=== PATIENT | male | born 1970 | race Caucasian/White ===

== ENCOUNTER 2017-07-21 10:18 | Observation (INO) ==
[2017-07-21] MEDS ORDERED: Aspirin 81 MG TAB.CHEW PO ONE (10:25)
--- NOTE | 2017-07-21 10:31 | Emergency Department Note ---
Disposition Clinical Impression: Chest pain Qualifiers: Chest pain type: unspecified Qualified Code(s): R07.9 - Chest pain, unspecified Disposition: Admitted As Inpatient Condition: Fair Instructions: Chest Wall Pain in Children (ED) Referrals: Noble Banks DO [Primary Care Provider] - Time of Disposition: 11:36 Chest Pain HPI - General Chief Complaint: ED Chest Pain Stated Complaint: Chest Pain Time Seen by Provider: 07/21/17 10:25 Source: patient Mode of arrival: ambulatory Limitations: no limitations Vital Signs Reviewed: Yes Nursing Notes Reviewed: Yes - History of Present Illness HPI Narrative: 46-year-old who complains of chest pain 3 days. Patient does have a history of previous AK. She states he had chest pain lasted 15-20 minutes on Thursday night. The squad was called and they came out did an EKG didn't see anything acute offered transport him to the hospital but he declined. Patient saw family doctor yesterday and states that they have in the process of scheduling a stress test. Today the patient again had chest pain and presents now for evaluation. Patient states he had a small AK in 1994. He's had no recent cardiac workup. Risk factors include cigarette smoking and family history. Pt complaint: chest pain Onset (ago): Just [employer] ASSIST[employer] Duration: intermittent Onset: during rest Pain Location: substernal, left chest Severity: mild, moderate Severity scale (1-10): 3 Quality: tightness, aching Pain Radiation: none Improves with: nothing Worsens with: nothing Context: other (History of previous AK no recent workup) Associated symptoms: Reports: syncope (Near syncope on Thursday) Treatments prior to arrival chest pain: none - Related Data Allergies Allergy/AdvReac Type Severity Reaction Status Date / Time No Known Allergies Allergy Verified 07/21/17 10:20 All systems ED: reviewed and negative except as stated. Constitutional: Denies: fever, chills, weakness, weight change Eyes: Denies: eye pain, eye discharge, vision change ENT ED: Denies: ear pain, throat pain, dental pain, hearing loss, epistaxis, congestion, dysphagia Cardiovascular: Reports: chest pain. Denies: palpitations, dyspnea on exertion , edema, syncope Respiratory: Denies: cough, dyspnea, wheezes, hemoptysis, stridor Gastrointestinal: Denies: abdominal pain, nausea, vomiting, diarrhea, constipation, hematemesis, melena, hematochezia Genitourinary: Denies: urgency, dysuria, frequency, hematuria Musculoskeletal: Denies: back pain, neck pain, arthralgia, myalgia Integumentary: Denies: rash, abrasion, lesions Neurological: Denies: headache, weakness, numbness, paresthesias, confusion, abnormal gait, vertigo Psychiatric: Denies: anxiety, depression, suicidal thoughts, homicidal thoughts , auditory hallucinations, visual hallucinations Endocrine: Denies: fatigue Hematological/Lymphatic: Denies: easy bleeding, easy bruising Allergic/Immunologic: Denies: facial swelling, urticaria Chest Pain PMH - Past Medical History Medical history: Reports: myocardial infarction Psychiatric history: Reports: no psych history - Social History Smoking Status: Current every day smoker Alcohol use: Reports: none Physical Exam - General Limitations: no limitations General appearance: alert, in no apparent distress - Head Head exam: atraumatic, normocephalic, normal inspection - Eye Eye exam: Present: normal appearance, PERRL, EOMI - ENT ENT exam: normal exam, normal oropharynx, mucous membranes moist - Neck Neck exam: Present: normal inspection, full ROM, trachea midline - Chest Chest inspection: Present: normal inspection, symmetric chest wall rise - Respiratory Respiratory exam: Present: normal lung sounds bilaterally - Cardiovascular Cardiovascular exam: Present: regular rate, normal rhythm, normal heart sounds - Abdominal Exam Abdominal exam: Present: soft, Non-Tender. Absent: tenderness, distention, guarding, rebound, rigidity - Extremities Exam Extremities exam: Present: normal inspection, full ROM. Absent: tenderness, pedal edema - Expanded Lower Extremity Exam Neurovascular/Tendon exam: Absent: motor deficit, sensory deficit, tendon deficit Gait: observed and normal - Back Exam Back exam: Present: normal inspection, full ROM. Absent: tenderness - Neurological Exam Neurological exam: Present: alert, oriented X3 - Psychiatric Psychiatric exam: Present: normal affect, normal mood - Skin Skin exam: Present: warm, dry, intact, normal color Course - Reevaluation(s) Reevaluation #1: 46-year-old previous history of AK who comes in complaining of chest pain. Had an episode lasting 15-20 minutes on Thursday. Again had chest pain again today. Risk factors of cigarette smoking and family history. Workup negative to this point we'll admit for rule out. Time: 11:35 - Consultations Consultation #1: Discussed with Brii Crabtree, admit. Time: 11:33 Vital Signs Temperature 97.7 F 07/21/17 10:21 Pulse Rate 103 07/21/17 10:21 Respiratory Rate 15 07/21/17 10:21 Blood Pressure 163/98 07/21/17 10:21 O2 Sat by Pulse Oximetry 97 07/21/17 10:21 Temperature 97.7 F 07/21/17 10:21 Pulse Rate 88 07/21/17 11:31 Respiratory Rate 18 07/21/17 11:31 Blood Pressure 126/99 07/21/17 11:31 O2 Sat by Pulse Oximetry 98 07/21/17 11:31 Oxygen Delivery Oxygen Delivery Room Air Chest Pain - Lab Data Result diagrams: 07/21/17 10:50 07/21/17 10:50 Lab Results 07/21/17 07/21/17 07/21/17 Range/Units 10:50 10:50 10:50 WBC 13.3 H (4.3-11.1) K/mcL RBC 5.02 (4.19-5.50) M/mcL Hgb 15.0 (12.9-16.9) g/dL Hct 45.4 (37.5-50.1) % MCV 90.4 (83.0-100.0) fL MCH 29.9 (28.0-33.3) pg MCHC 33.0 (31.6-35.5) g/dL RDW 13.3 (11.5-14.5) % Plt Count 330 (140-400) K/mcL MPV 9.3 L (9.4-12.4) fL Immature Gran % 0.4 (0-4) % Seg Neutrophils % 73.5 % Lymphocytes % 18.5 % Monocytes % 5.9 % Eosinophils % 1.1 % Basophils % 0.6 % Neutrophils # 9.8 H (1.6-8.9) K/mcL Lymphocytes # 2.5 (0.6-4.6) K/mcL Monocytes # 0.8 (0.0-1.3) K/mcL Eosinophils # 0.1 (0.0-0.6) K/mcL Basophils # 0.1 (0.0-0.2) K/mcL PT 10.4 (9.4-12.1) Seconds INR 1.0 APTT 27.6 (26.0-36.0) Seconds D-Dimer 232 (0-500) ng/mLFEU Sodium 139 (136-145) mEq/L Potassium 4.3 (3.5-4.5) mEq/L Chloride 107 (98-109) mEq/L Carbon Dioxide 23 (19-29) mEq/L BUN 20 (8-26) mg/dL Creatinine 1.01 (0.72-1.25) mg/dL Est GFR ( Amer) > 60 (> 60) Est GFR (Non-Af Amer) > 60 (> 60) BUN/Creatinine Ratio 20 (6-26) Glucose 136 H (70-99) mg/dL Calculated Osmolality 293 (280-300) Calcium 10.1 (8.6-10.8) mg/dL Troponin I (0-0.03) ng/mL 07/21/17 Range/Units 10:50 WBC (4.3-11.1) K/mcL RBC (4.19-5.50) M/mcL Hgb (12.9-16.9) g/dL Hct (37.5-50.1) % MCV (83.0-100.0) fL MCH (28.0-33.3) pg MCHC (31.6-35.5) g/dL RDW (11.5-14.5) % Plt Count (140-400) K/mcL MPV (9.4-12.4) fL Immature Gran % (0-4) % Seg Neutrophils % % Lymphocytes % % Monocytes % % Eosinophils % % Basophils % % Neutrophils # (1.6-8.9) K/mcL Lymphocytes # (0.6-4.6) K/mcL Monocytes # (0.0-1.3) K/mcL Eosinophils # (0.0-0.6) K/mcL Basophils # (0.0-0.2) K/mcL PT (9.4-12.1) Seconds INR APTT (26.0-36.0) Seconds D-Dimer (0-500) ng/mLFEU Sodium (136-145) mEq/L Potassium (3.5-4.5) mEq/L Chloride (98-109) mEq/L Carbon Dioxide (19-29) mEq/L BUN (8-26) mg/dL Creatinine (0.72-1.25) mg/dL Est GFR ( Amer) (> 60) Est GFR (Non-Af Amer) (> 60) BUN/Creatinine Ratio (6-26) Glucose (70-99) mg/dL Calculated Osmolality (280-300) Calcium (8.6-10.8) mg/dL Troponin I 0.00 (0-0.03) ng/mL - EKG Data EKG attestation: Yes I reviewed and interpreted this EKG. EKG shows normal: sinus rhythm Rate: tachycardia Rhythm: NSR Interpretation: no acute changes Heart Score - Score History: Moderately Suspicious EKG: Non Specific repolarisation Disturbance Age: 45-65 Risk Factors: Equal/Greater than 3 risk factor or history of atherosclerotic disease Troponin: Less than normal limit HEART Score Total: 5
[2017-07-21 11:09] LABS: Basophils # 0.1 K/mcL (0.0-0.2); Basophils % 0.6 %; Eosinophils # 0.1 K/mcL (0.0-0.6); Eosinophils % 1.1 %; Hematocrit 45.4 % (37.5-50.1); Immature Granulocytes % 0.4 % (0-4); Lymphocytes # 2.5 K/mcL (0.6-4.6); Lymphocytes % 18.5 %; Mean Corpuscular Hemoglobin 29.9 pg (28.0-33.3); Mean Corpuscular Volume 90.4 fL (83.0-100.0); Mean Platelet Volume 9.3 fL (9.4-12.4); Monocytes # 0.8 K/mcL (0.0-1.3); Monocytes % 5.9 %; Neutrophils # 9.8 K/mcL (1.6-8.9); Platelet Count 330 K/mcL (140-400); Red Blood Count 5.02 M/mcL (4.19-5.50); Red Cell Distribution Width 13.3 % (11.5-14.5); Segmented Neutrophils % 73.5 %
[2017-07-21 11:13] LABS: Prothrombin Time 10.4 Seconds (9.4-12.1)
[2017-07-21 11:16] LABS: Activated Partial Thrombo Time 27.6 Seconds (26.0-36.0)
[2017-07-21 11:20] LABS: BUN/Creatinine Ratio 20 (6-26); Blood Urea Nitrogen 20 mg/dL (8-26); Calcium 10.1 mg/dL (8.6-10.8); Carbon Dioxide 23 mEq/L (19-29); Chloride 107 mEq/L (98-109); Glucose 136 mg/dL (70-99); Osmolality,Calculated 293 (280-300); Potassium 4.3 mEq/L (3.5-4.5); Sodium 139 mEq/L (136-145); eGFR For African Americans > 60 (> 60); eGFR For Non-African Americans > 60 (> 60)
[2017-07-21] MEDS ORDERED: Naloxone 0.4 MG/ML INJ IVP PRN (14:37)
--- NOTE | 2017-07-21 15:59 | Internal Med History&Physical ---
Date of Encounter: 07/21/17 Time of Encounter: 15:58 Assessment and Plan (1) ACS (acute coronary syndrome) Current visit: Yes Status: Acute Continued chest pain, no longer diaphoretic and denies dyspnea. Resting comfortably in bed. Troponins negative at this time, no EKG changes. Does not appear to be a PE as D-dimer is 232. Multiple risk factors for coronary event d/ t smoking, h/o CT, poor lifestyle choices and family history CAD. Continue to work up and consult cardio. Cardio consult~ Serial troponins echocardiogram Stress test in am Continuous tele, oxygen PRN for dyspnea lipid panel in am CBC, CMP in am (2) Chest pain Current visit: Yes Status: Acute see above Qualifiers: Chest pain type: unspecified Qualified Code(s): R07.9 - Chest pain, unspecified (3) Smoker Current visit: Yes Status: Acute Continues to smoke 1.5 packs per day. Will hold nicotine patch today and tomorrow until after stress test. (4) DVT prophylaxis Current visit: Yes Status: Acute lovenox 40mg SC daily Internal Medicine - H&P: HPI Chief complaint: CP X3 DAYS Admitted From: Home Plans for Post Hospital Care: Home History of present illness: Mr. Singh is a 46 year old male with a PMH of previous CT in 1994, who is a current 1.5 pack per day smoker present to the ED with a 3-day h/o midsternal chest pain that is described as intermittent, changing from sharp to dull with diaphoresis and radiation to the right neck. He denies chest pain worsening with exertion or being relieved by rest. Workup in ED reveals a negative troponin at 0.00, unremarkable CMP and CXR, Slightly elevated WBC at 13.3. Denies any lower extremity swelling, palpitations, or new cough. Admits to intermittent fevers greater than two weeks, night sweats greater than 3 weeks, and an unintentional weightloss of 14 pounds. Being admitted for further w/u and evaluation. Past Med Surg Social Fam HX - Past Medical History Medical history: myocardial infarction, other Psychiatric history: no psych history - Past Surgical History Surgical History: orthopedic, other - Social History Smoking Status: Current every day smoker Packs per day: 1.5 Smokeless Tobacco Status: No Alcohol use: none Drug use: none - Family History Father Living Status: Age at : 71 Cause of : [place] Hx Family Cardiac Disorders: Yes Internal Medicine - H&P: Meds Acetaminophen [Tylenol] 500 mg PO Q6HR PRN 07/21/17 [History] 3 Allergy/AdvReac Type Severity Reaction Status Date / Time No Known Allergies Allergy Verified 07/21/17 10:20 All Systems PM: A 10-system review of systems was performed and is negative for pertinent findings except as documented above in the HPI. - Constitutional Constitutional: excessive sweating, fever(s), night sweats, weight loss - EENT Nose, mouth and throat: no dysphagia, no nasal discharge, no neck pain, no sore throat - Cardiovascular Cardiovascular ROS IM: chest pain, no diaphoresis, no dyspnea, no edema, no lightheadedness, no palpitations, no syncope - Respiratory Respiratory: no cough, no dyspnea, no dyspnea on exertion, no wheezing, no pain on inspiration, no chest congestion, no excessive phlegm production, no pain with cough - Gastrointestinal Gastrointestinal: no abdominal pain, no diarrhea, no hematemesis, no hematochezia, no melena, no nausea, no vomiting - Genitourinary Genitourinary ROS male: no difficulty urinating, no dysuria, no flank pain, no urinary frequency, no urinary hesitancy, no urinary urgency - Musculoskeletal Musculoskeletal ROS IM: no numbness, no tingling - Integumentary Integumentary IM: no rash, no unusual bruising - Neurological Neurological ROS: no confusion, no convulsions, no focal weakness, no numbness, no tingling, no tremor(s) - Constitutional Vitals: Temp Pulse Resp BP Pulse Ox 98.0 F 70 16 127/82 97 07/21/17 15:47 07/21/17 15:47 07/21/17 15:47 07/21/17 15:47 07/21/17 15:47 General appearance: Present: cooperative, A&O X 3, no acute distress, answers questions appropriately - Head Head exam: Present: atraumatic, normocephalic - Eye Eye exam: Present: EOMI, PERRL, conjuntiva pink, sclera anicteric Pupils: Present: PERRL - Neck Neck exam general surgery: Present: supple, trachea midline. Absent: lymphadenopathy - Respiratory Respiratory exam: Present: CTAB. Absent: accessory muscle use, rales, rhonchi, wheezes - Cardiovascular Cardiovascular exam: Present: RRR, +S1, +S2. Absent: diastolic murmur, gallop, rubs, systolic murmur - GI/Abdominal GI/Abdominal exam: Present: normal bowel sounds, soft, no peritoneal signs. Absent: distended, tenderness - Extremities Exam Extremities exam: Present: warm, radial pulses palpable and symmetrical. Absent : calf tenderness, cyanotic, pedal edema - Neurological Exam Neurological exam: Present: CN II-XII intact, oriented X3, no focal deficits. Absent: pronater drift, facial droop, speech deficit - Skin Skin exam: Present: dry, intact Internal Med - H&P Results - Labs CBC & Chem 7: 07/21/17 10:50 07/21/17 10:50 - EKG Data -: EKG Interpreted by Myself EKG shows normal: sinus rhythm Rate: tachycardia - EKG Data Prior EKG available for review: yes When compared to previous EKG: there is no significant change - Diagnostic Studies Chest x-ray Status: image reviewed by me Additional comments: no acute pulmonary process
--- NOTE | 2017-07-21 16:23 | Event Note ---
Date of Encounter: 07/21/17 Time of Encounter: 16:22 Patient seen and examined with nurse practitioner. Not anginal chest pain. Initial troponin normal and electrocardiogram shows no ST segment shifts. Check Serial cardiac markers. Stress test if troponins are normal
[2017-07-22 04:42] LABS: Basophils # 0.1 K/mcL (0.0-0.2); Basophils % 0.7 %; Eosinophils # 0.3 K/mcL (0.0-0.6); Eosinophils % 2.4 %; Hematocrit 43.9 % (37.5-50.1); Hemoglobin 14.8 g/dL (12.9-16.9); Immature Granulocytes % 0.3 % (0-4); Lymphocytes # 4.1 K/mcL (0.6-4.6); Lymphocytes % 33.1 %; Mean Corpuscular HGB Conc 33.7 g/dL (31.6-35.5); Mean Corpuscular Hemoglobin 30.5 pg (28.0-33.3); Mean Corpuscular Volume 90.5 fL (83.0-100.0); Mean Platelet Volume 9.6 fL (9.4-12.4); Monocytes % 7.7 %; Neutrophils # 6.9 K/mcL (1.6-8.9); Platelet Count 287 K/mcL (140-400); Red Blood Count 4.85 M/mcL (4.19-5.50); Red Cell Distribution Width 13.2 % (11.5-14.5); Segmented Neutrophils % 55.8 %
[2017-07-22 05:07] LABS: BUN/Creatinine Ratio 19 (6-26); Blood Urea Nitrogen 18 mg/dL (8-26); Calcium 9.4 mg/dL (8.6-10.8); Carbon Dioxide 25 mEq/L (19-29); Chloride 105 mEq/L (98-109); Glucose 90 mg/dL (70-99); Osmolality,Calculated 289 (280-300); Sodium 139 mEq/L (136-145); eGFR For African Americans > 60 (> 60); eGFR For Non-African Americans > 60 (> 60)
[2017-07-22] MEDS ORDERED: *HR* Enoxaparin 40 MG/0.4 ML SYRINGE SQ SCH (06:00)
[2017-07-22] MEDS ORDERED: Regadenoson 0.4 MG/5 ML SYRINGE IVP ONE (06:03)
[2017-07-22] MEDS ORDERED: Aspirin 81 MG TAB.CHEW PO SCH (09:00)
--- NOTE | 2017-07-22 11:00 | Nuclear Medicine Stress Report ---
Regadenoson Nuclear Stress Name: Noble Singh Date of Study: 07/22/2017 Date: 1970 Ht: 70.0 in Medical Record#: [id number] Age: 46 Wt: 205.0 lb Gender: Male Order #: [id number] Location: [facility] Room: [facility] Supervising Provider: Harsha Bernardo CNP Reading Physician: Nicolas Aguiar DO, FACC, [facility] Ordering Physician: June Landis CNP Stress Technologist: Gunnar Orellana, SUPERVISOR DENTURE DEPARTMENT, CPFT Curbstone Setter: Roshan Bond Indications: Chest Pain Impression: Pharmacologic stress ECG is negative for ischemia at level of heart rate achieved. Gated EF = 66%. Small sized, mild intensity, reversible inferior and anterior perfusion defects possibly due to ischemia. Dr. Carter notified via [employer]. History: History of Smoking Stress Test Summary: Stress Test Type: Pharmacologic Regadenoson 0.4mg/5ml given IV Baseline Information: Initial Heart Rate: 79 Blood Pressure: 112/74 Stress Information: Stress Time: 4 min 00 sec Test Terminated Due to (primary): As per protocol Maximum Blood Pressure: 112/74 Maximum Heart Rate: 114 Percent Maximum Heart Rate Achieved: 66 Double Product: [id number] METS Reached: 1 Symptoms: Shortness of breath, Nausea Nuclear Summary: SPECT myocardial perfusion imaging using Tc99m Sestamibi given intravenously was performed at rest and following cardiac stress testing. The resting images were obtained following initial dose of 10.7 mCi. Following stress an additional dose of 29.6 mCi was given at peak exercise or 30 seconds post regadenoson infusion. Medication Given: Time Medication Dose Units Route Findings: Stress Note * Resting ECG demonstrated normal sinus rhythm. * No baseline arrhythmias were noted. * Pharmacologic stress ECG is negative for ischemia at level of heart rate achieved. * No arrhythmias were noted during stress. * Patient had no chest pain during stress. Hemodynamic responses * Normal hemodynamic responses to pharmacologic stress. Study Quality * Study quality is average. Gated EF % * Gated EF = 66%. Left Ventricle * The left ventricle is not dilated. * LVEDV = 115 mL. NORMALS * Normal wall motion. * Normal Segmental Perfusion in rest. Anterior Perfusion Stress * The basal anterior segment shows a mild reduction in perfusion. Inferior Perfusion Stress * The inferior segments show a mild reduction in perfusion. TID * No evidence of transient ischemic dilatation. TID ratio * TID ratio = 1.16. Updated by Nicolas Aguiar DO, ZEN, JUAN DIEGO, CORNELL on 07/22/2017 10:54:18 AM electronically signed on 07/22/2017 10:55:14 AM with status of Final
--- NOTE | 2017-07-22 12:03 | Electrocardiograph Report ---
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
[2017-07-22] MEDS ORDERED: Ketorolac 30 MG/ML VIAL IVP ONE (14:28)
--- NOTE | 2017-07-22 14:48 | Cardiology Consult Note ---
Date of Encounter: 07/22/17 Time of Encounter: 14:00 Assessment and Plan (1) Chest pain Current Visit: Yes Status: Acute Per cardiology: -Admitted with chest pain. -Reports occured at rest. -Denies exertional chest pain. Of note, exercises daily without chest pain. -Current chest pain 10/28. Worsens with deep inspiration. -Chest pain reproducable with palpation. -Troponins negative x3. -ECG with no acute ischemic changes -Echo with preserved EF, no wall motion abnormalities. -ABnormal stress test noted. -Will follow in outpatient setting. Qualifiers: Chest pain type: unspecified Qualified Code(s): R07.9 - Chest pain, unspecified (2) Abnormal stress test Current Visit: Yes Status: Acute Per cardiology: -Pharm nuclear stress test with gated EF 66%, small sized mild intensity reversible inferior and anterior perfusion defects possibly due ot ischemia. -Discussed abnormal findings with patient and mother. -recommend C. -AT this time, patient would like to follow up in cardiology clinic and then proceed with C based on symptoms. -Will start asa 81mg, beta adela, and statin. -Cardiology will sign off and will follow in outpatient setting. FOllow up set. -Patient educated to return to ER for chest pain. Pateint states understanding. (3) Tobacco abuse Current Visit: Yes Status: Chronic Per cardiology: -Admits to smoking 1.5 ppd for 25 years. -I spent 5 minutes reviewing smoking cessation education with patient. (4) Hyperlipemia Current Visit: Yes Status: Acute Per cardiology: -Patient denies history of hyperlipidemia. -Per review of records 10/2016 triglycerides 154, cholesterol 170, LDL 104, HDL 35. -Will start statin. Qualifiers: Hyperlipidemia type: mixed hyperlipidemia Qualified Code(s): E78.2 - Mixed hyperlipidemia Discussion w patient/family: The assessment and plan as outlined above was discussed with the patient and/or family members who expressed understanding and agreement. All questions were answered. Thank you for involving us in the care of your patient. Please call with any questions. Discussed and reviewed with . History of Present Illness Consult date: 07/22/17 Requesting physician: June Landis Consult reason: abnormal stress test Chief complaint: chest pain History of present illness: Mr. Singh is a 46 year old male with a relevant past medical history of smoking 1.5 pack per day for 25 years. Patient has family history of CAD with father having first [place] between ages 30-40, unsure exactly which age. Patient reports on Thursday he was laying in bed when he had sudden onset of mid sternal chest pain that patient rated 10/10 at that time. Patient states it felt "like someone sitting on my chest." Patient denies aggravating or alleviating factors. Patient states pain spontaneously resolved eafter 10 minutes. Patient states on Thursday he went to his PCP office who ordered stress test. Patient was told by PCP if he had recurrent chest pain to go to ER. Patient states he had recurrent chest pain, not as severe, so he presented to ER. Currently patient states pain is a 1/10. Patient reports pain worsens with deep inspiration. Of note, patient exercises daily and denies chest pain with work outs. Patient does admit to worsening shortness of breath over the last 6 weeks. Patient denies increased fatigue. Past Med Surg Social Fam HX - Past Medical History Attestation: Yes The following information was validated with the patient. Source: patient, old records reviewed, obtained from family Medical history: myocardial infarction, other Psychiatric history: no psych history - Past Surgical History Surgical History: orthopedic, other - Social History Smoking Status: Current every day smoker Packs per day: 1.5 Smokeless Tobacco Status: No Alcohol use: none Drug use: none - Family History Father Living Status: Age at : 71 Cause of : [place] Hx Family Cardiac Disorders: Yes Medications and Allergies Acetaminophen [Tylenol] 500 mg PO Q6HR PRN 07/21/17 [History] 3 Allergy/AdvReac Type Severity Reaction Status Date / Time No Known Allergies Allergy Verified 07/21/17 10:20 All Systems Review: A 10-system review of systems was performed and is negative for pertinent findings except as documented above in the HPI. - Cardiovascular Cardiovascular: as per HPI, chest pain at rest, dyspnea on exertion Physical Examination Vital Signs, Last 4 Hours Temp Pulse Resp BP Pulse Ox 07/22/17 11:33 98.3 F 76 15 121/78 95 General: Conversant, No Apparent Distress HEENT: Atraumatic, Normocephaly, Mucus Membranes Moist Neck: No JVD, Normal carotid pulses Cardiac: Reg Rate and Rhythm, Normal S1 and S2, No Murmur Lungs: Normal Breath Sounds, No Wheeze, Rales, Rhonchi Neuro: Alert and responsive, No focal deficits noted Abdomen: Soft, Non-Tender Skin: No rashes noted on visualized skin Musculoskeletal: Other (Chest wall tenderness noted with palpation. ) Extremities: No Clubbing, No Cyanosis, No Edema, Normal Pulses Results 07/22/17 03:45 07/22/17 03:45 Lab Results Impressions Echocardiogram 07/21/17 14:41 Impressions: LVEF 60%. Normal LV chamber size, wall thickness and function. Probable normal left ventricular diastolic function. Normal right ventricular structure and function. Unable to estimate RVSP due to lack of TR jet. No significant valvular dysfunction. Left Ventricular Wall Motion: Rest Echo Findings All wall segments showed normal motion. Findings: Study Quality * Technically adequate exam. ECG Findings * Normal sinus rhythm. Left Ventricle * LVEF 60%. * Normal LV chamber size, wall thickness and function. * Probable normal left ventricular diastolic function. Right Ventricle * Normal right ventricular structure and function. Left Atrium * Normal left atrial size. Right Atrium * Normal right atrial size. Interatrial Septum * No evidence of PFO by color Doppler. Aortic Valve * Trileaflet aortic valve with normal function. * No aortic regurgitation. * No aortic stenosis. Mitral Valve * Normal mitral valve structure and function. * No mitral regurgitation. * No mitral stenosis. Tricuspid Valve * Normal tricuspid valve structure and function. * No tricuspid regurgitation. * Unable to estimate RVSP due to lack of TR jet. Pulmonic Valve * Pulmonic valve not well visualized. * No pulmonic regurgitation. Aorta * Normally sized aortic root. Pericardium * The pericardium appears normal. IVC * Normal IVC dimensions and inspiratory collapse. Pulmonary Artery * Normal visualized portions of the main pulmonary artery. Active Medications Acetaminophen (Tylenol) 500 mg PO Q6HR PRN PRN Reason: Pain Stop: 01/20/18 15:01 Aspirin (Aspirin) 162 mg PO DAILY [facility] Stop: 01/21/18 09:01 Last Admin: 07/22/17 08:56 Dose: 81 mg Enoxaparin Sodium (Lovenox) 40 mg SQ 0600 MATTIE PRN Reason: Protocol Stop: 01/21/18 06:01 Last Admin: 07/22/17 02:18 Dose: Not Given Naloxone HCl (Narcan) 0.4 mg IVP Q2MIN PRN PRN Reason: Opioid Reversal Stop: 01/20/18 14:38 Laboratory Tests 07/21/17 07/21/17 07/21/17 10:50 16:08 22:51 WBC Creatinine Troponin I 0.00 0.00 0.00 07/22/17 07/22/17 03:45 03:45 WBC 12.4 H Creatinine 0.97 Troponin I - Imaging and Cardiology Chest Xray: report reviewed Stress Test: report reviewed Echo: report reviewed - EKG Interpretation EKG results cardiology: personally reviewed (ECG with sinus tachycardia, HR 105. ), other (Telemetry reviewed with average HR 75, sinus rhythm. PVCs noted.) Consult Discharge Plan - Plan
[2017-07-22] MEDS ORDERED: Metoprolol XL (24 HR) Succ 25 MG TAB.ER.24H PO SCH (15:00)
[2017-07-22 15:05] VITALS: BP 146/76
--- NOTE | 2017-07-22 15:08 | Discharge Summary ---
Date of Encounter: 07/22/17 Time of Encounter: 15:03 - Discharge Diagnosis (1) Chest pain Priority: Primary Status: Acute Comments: Noble Singh is a 46-year-old male with no significant past medical history who presented to [facility] on 07/21/2017 with complaints of chest pain. He was placed in observation status for ACS rule out. He underwent a stress test that showed a mild defect. He was evaluated by cardiology and discharged home in stable condition with outpatient cardiology follow-up 1. Chest pain: presented with chest pain that occurred at rest. Serial troponins negatuve. EKG without acute ST changes. Pharm nuclear stress test with gated EF 66%, small sized mild intensity reversible inferior and anterior perfusion defects possibly due to ischemia. He was evaluated by cardiology and patient opted to follow up outpatient cardiology clinic (will decide on left heart catheter based on symptoms). Start ASA, BB and statin. Will need to follow up with cardiology. 2. Tobacco use: Current smoker. Cessation advised Qualifiers: Chest pain type: unspecified Qualified Code(s): R07.9 - Chest pain, unspecified (2) Tobacco abuse Priority: Primary Status: Acute - Discharge Medications Prescriptions: Aspirin Enteric Coated [Aspirin EC] 81 mg PO DAILY #30 tablet. Atorvastatin [Lipitor] 40 mg PO HS #30 tablet Metoprolol XL (24 HR) Succ [Toprol Xl] 25 mg PO DAILY #30 tab.er.24h Home Medications: Acetaminophen [Tylenol] 500 mg PO Q6HR PRN 07/21/17 [History] Aspirin Enteric Coated [Aspirin EC] 81 mg PO DAILY #30 tablet. 07/22/17 [Rx] Atorvastatin [Lipitor] 40 mg PO HS #30 tablet 07/22/17 [Rx] Metoprolol XL (24 HR) Succ [Toprol Xl] 25 mg PO DAILY #30 tab.er.24h 07/22/17 [ Rx] Allergies/Adverse Reactions: 3 Allergy/AdvReac Type Severity Reaction Status Date / Time No Known Allergies Allergy Verified 07/21/17 10:20 Procedures/tests Complete & Pending: Procedures Performed prior 72 hours Category Date Time Status NM bucky perf SPECT multi [NM] Routine Exams 07/21/17 14:42 Taken EV echocardiogram Routine Y 07/21/17 14:41 Completed SP pharm nuclear stress Routine Y 07/22/17 07:00 Completed Date of admission: 07/21/17 11:45 Primary care physician: Janet Arboleda Consults: 07/22/17 14:01 Consult to Cardiology [CONS] Routine Comment: Consulting Provider: Cardiology Darlene Reason for Consult: Abnormal stress test Call Completed: Yes Discharging clinician: June Landis Anticipated date of discharge: 07/22/17 - Patient Status Disposition: Home, Self-Care Condition: Good Functional capacity at discharge: independent ambulation Overall status at discharge: patient is back to baseline - Discharge Instructions Follow Up With: Noble Banks DO [Primary Care Provider] - Forms: ED Satisfaction Letter - Diet and Activity Activity: resume usual activities as tolerated Diet: low fat, low cholesterol Interval History: Seen and examined at bedside, patient is new to me. Information obtained from chart review and patient report. Patient says he feels better, back to baseline. Denies chest pain, no SOB. Says he would like to go home Hospital course: See assessment and plan for hospital course - Time Spent with Patient Total time spent providing and/or coordinating discharge services: - Constitutional Vitals: Temp Pulse Resp BP Pulse Ox 98.3 F 76 15 121/78 95 07/22/17 11:33 07/22/17 11:33 07/22/17 11:33 07/22/17 11:33 07/22/17 11:33 General appearance: Present: cooperative, A&O X 3, no acute distress, answers questions appropriately - Head Head exam: Present: atraumatic, normocephalic - Eye Eye exam: Present: PERRL, conjuntiva pink, sclera anicteric Pupils: Present: PERRL - Neck Neck exam general surgery: Present: supple, trachea midline. Absent: lymphadenopathy - Respiratory Respiratory exam: Present: CTAB. Absent: accessory muscle use, rales, rhonchi, wheezes - Cardiovascular Cardiovascular exam: Present: RRR, +S1, +S2. Absent: diastolic murmur, gallop, rubs, systolic murmur - GI/Abdominal GI/Abdominal exam: Present: normal bowel sounds, soft, no peritoneal signs. Absent: distended, tenderness - Extremities Exam Extremities exam: Present: warm, radial pulses palpable and symmetrical. Absent : calf tenderness, cyanotic, pedal edema - Neurological Exam Neurological exam: Present: CN II-XII intact, oriented X3, no focal deficits. Absent: pronater drift, facial droop, speech deficit - Skin Skin exam: Present: dry, intact
[2017-07-23] MEDS ORDERED: Aspirin Enteric Coated 81 MG Tablet PO SCH (09:00)
== END 2017-07-22 15:45 | disposition home or self-care (01) ==
LOC: 3BNU 10:18 → EMEROO 10:18 → 3BNU 12:40
PROVIDERS: ADMIT Nurse Practitioner; ATTEND Registered Nurse

== ENCOUNTER 2019-06-14 09:16 | Inpatient (IN) ==
[2019-06-14] MEDS ORDERED: Isovue-370 500 ML BOTTLE IVP ONE (09:20)
[2019-06-14 09:57] LABS: Basophils % 0.3 %; Mean Corpuscular HGB Conc 34.7 g/dL (31.6-35.5); Red Cell Distribution Width 12.8 % (11.5-14.5)
[2019-06-14 09:59] LABS: Basophils # 0.1 K/mcL (0.0-0.2); Eosinophils # 0.1 K/mcL (0.0-0.6); Eosinophils % 0.5 %; Hematocrit 45.2 % (37.5-50.1); Hemoglobin 15.7 g/dL (12.9-16.9); Immature Granulocytes % 0.7 % (0-4); Lymphocytes # 2.4 K/mcL (0.6-4.6); Lymphocytes % 9.4 %; Mean Corpuscular Hemoglobin 31.8 pg (28.0-33.3); Mean Corpuscular Volume 91.7 fL (83.0-100.0); Mean Platelet Volume 9.6 fL (9.4-12.4); Monocytes # 1.4 K/mcL (0.0-1.3); Monocytes % 5.6 %; Neutrophils # 21.5 K/mcL (1.6-8.9); Platelet Count 298 K/mcL (140-400); Red Blood Count 4.93 M/mcL (4.19-5.50); Segmented Neutrophils % 83.5 %; White Blood Count 25.7 K/mcL (4.3-11.1)
[2019-06-14 10:21] LABS: Alanine Aminotransferase 14 Units/L (7-52); Albumin 4.3 g/dL (3.5-5.7); Albumin/Globulin Ratio 1.3 (1.1-2.2); Alkaline Phosphatase 93 Units/L (34-104); Aspartate Amino Transferase 12 Units/L (13-39); BUN/Creatinine Ratio 12 (6-26); Bilirubin,Direct 0.1 mg/dL (0.0-0.2); Bilirubin,Indirect 0.3 mg/dL (0.0-1.2); Bilirubin,Total 0.4 mg/dL (0.3-1.0); Blood Urea Nitrogen 12 mg/dL (6-20); Carbon Dioxide 24 mEq/L (23-29); Chloride 105 mEq/L (98-107); Globulin 3.2 g/dL (2.4-3.5); Glucose 134 mg/dL (70-105); Lipase 14 Units/L (11-82); Osmolality,Calculated 290 (280-300); Potassium 3.6 mEq/L (3.5-5.1); Sodium 139 mEq/L (136-145); Total Protein 7.5 g/dL (6.4-8.9); eGFR For African Americans > 60 (> 60); eGFR For Non-African Americans > 60 (> 60)
[2019-06-14] MEDS ORDERED: cefOXitin 2,000 MG in Water for inj. (sterile) 20 ML IVP ONE (10:26)
[2019-06-14 10:32] LABS: Platelet Estimate Normal (Normal)
[2019-06-14 10:50] LABS: Bilirubin,Urine Negative (Negative); Blood,Urine Negative (Negative); Clarity,Urine Clear (Clear); Color,Urine Yellow (Yellow); Glucose,Urine (UA) Normal (Normal); Ketones,Urine Negative (Negative); Leukocyte Esterase,Urine Negative (Negative); Nitrite,Urine Positive (Negative); Protein,Urine Negative (Neg-Trace); Specific Gravity,Urine 1.024 (1.010-1.025); Urobilinogen,Urine Normal (Normal)
[2019-06-14 10:52] LABS: Bacteria,Urine None Seen per hpf (None-Few); Hyaline Casts,Urine None Seen per lpf (None-Few); Squamous Epithelial Cell,Urine Many per lpf (None-Few); WBC,Urine 0-3 per hpf (0-3)
[2019-06-14] MEDS ORDERED: MetroNIDAZOLE 500 MG/100 ML 500 MG/100 ML BAG IVPB ONE (11:31)
[2019-06-14] MEDS ORDERED: Ringers Solution, Lactated 1,000 ML IVC ONE (13:28)
[2019-06-14] MEDS ORDERED: Ringers Solution, Lactated 1,000 ML ONE (13:31)
[2019-06-14] MEDS ORDERED: Naloxone 0.4 MG/ML INJ IVP PRN (14:26)
[2019-06-14] MEDS: Ringers Solution, Lactated 1,000 ML IVC SCH ×2 (14:30→23:29)
[2019-06-14 15:14] LABS: INR 1.1; Prothrombin Time 12.3 Seconds (9.4-12.1)
[2019-06-14 15:19] LABS: Activated Partial Thrombo Time 30.5 Seconds (26.0-36.0)
[2019-06-14] MEDS ORDERED: Nicotine 14 MG PATCH.TD24 TD PRN (15:21)
[2019-06-14] MEDS: Piperacillin/Tazobactam 3.375 GM in 0.9 % Sodium Chloride Mini Bag 100 ML IVPB SCH ×2 (15:56→23:29)
[2019-06-14] MEDS: Acetaminophen 325 MG TABLET PO PRN ×2 (16:06→23:29)
[2019-06-14] MEDS: Famotidine 20 MG TABLET PO SCH ×2 (16:39→21:48)
[2019-06-14] MEDS: *HR* Heparin 5,000 UNIT/ML VIAL SQ SCH (16:39)
[2019-06-14] MEDS ORDERED: *HR* OxyCODONE/APAP 5/325 TABLET PO ONE (17:51)
[2019-06-14] MEDS ORDERED: MetroNIDAZOLE 500 MG/100 ML 500 MG/100 ML BAG IVPB SCH (22:00)
[2019-06-14] MEDS: Ondansetron ODT 4 MG TAB.RAPDIS SL PRN (23:36)
[2019-06-15] MEDS: Famotidine 20 MG TABLET PO SCH ×4 (03:08→23:30)
[2019-06-15] MEDS: *HR* Heparin 5,000 UNIT/ML VIAL SQ SCH ×2 (06:13→18:06)
[2019-06-15 07:18] LABS: Basophils # 0.1 K/mcL (0.0-0.2); Basophils % 0.4 %; Eosinophils # 0.1 K/mcL (0.0-0.6); Eosinophils % 0.5 %; Hematocrit 42.9 % (37.5-50.1); Hemoglobin 14.6 g/dL (12.9-16.9); Immature Granulocytes % 0.5 % (0-4); Lymphocytes # 2.3 K/mcL (0.6-4.6); Lymphocytes % 11.2 %; Mean Corpuscular Hemoglobin 30.8 pg (28.0-33.3); Mean Corpuscular Volume 90.5 fL (83.0-100.0); Mean Platelet Volume 9.7 fL (9.4-12.4); Monocytes # 1.5 K/mcL (0.0-1.3); Monocytes % 7.1 %; Neutrophils # 16.5 K/mcL (1.6-8.9); Platelet Count 267 K/mcL (140-400); Red Blood Count 4.74 M/mcL (4.19-5.50); Red Cell Distribution Width 12.6 % (11.5-14.5); Segmented Neutrophils % 80.3 %; White Blood Count 20.6 K/mcL (4.3-11.1)
[2019-06-15 07:40] LABS: BUN/Creatinine Ratio 8 (6-26); Blood Urea Nitrogen 8 mg/dL (6-20); Carbon Dioxide 25 mEq/L (23-29); Chloride 100 mEq/L (98-107); Glucose 90 mg/dL (70-105); Osmolality,Calculated 284 (280-300); Potassium 3.3 mEq/L (3.5-5.1); Sodium 138 mEq/L (136-145); eGFR For African Americans > 60 (> 60); eGFR For Non-African Americans > 60 (> 60)
[2019-06-15] MEDS: Piperacillin/Tazobactam 3.375 GM in 0.9 % Sodium Chloride Mini Bag 100 ML IVPB SCH ×3 (08:02→23:30)
[2019-06-15] MEDS: Ondansetron ODT 4 MG TAB.RAPDIS SL PRN (09:17)
[2019-06-15] MEDS: *HR* OxyCODONE/APAP 5/325 TABLET PO PRN ×2 (09:17→18:06)
[2019-06-16] MEDS: *HR* OxyCODONE/APAP 5/325 TABLET PO PRN (00:13)
[2019-06-16] MEDS: *HR* Heparin 5,000 UNIT/ML VIAL SQ SCH (04:39)
[2019-06-16] MEDS: Famotidine 20 MG TABLET PO SCH ×2 (04:39→10:35)
[2019-06-16 05:16] LABS: Basophils # 0.1 K/mcL (0.0-0.2); Basophils % 0.4 %; Eosinophils # 0.2 K/mcL (0.0-0.6); Eosinophils % 1.1 %; Hematocrit 41.3 % (37.5-50.1); Hemoglobin 13.8 g/dL (12.9-16.9); Immature Granulocytes % 0.6 % (0-4); Lymphocytes # 2.7 K/mcL (0.6-4.6); Lymphocytes % 15.7 %; Mean Corpuscular HGB Conc 33.4 g/dL (31.6-35.5); Mean Corpuscular Hemoglobin 29.7 pg (28.0-33.3); Mean Platelet Volume 9.1 fL (9.4-12.4); Monocytes # 1.4 K/mcL (0.0-1.3); Monocytes % 7.9 %; Neutrophils # 12.8 K/mcL (1.6-8.9); Platelet Count 234 K/mcL (140-400); Red Blood Count 4.64 M/mcL (4.19-5.50); Red Cell Distribution Width 12.7 % (11.5-14.5); Segmented Neutrophils % 74.3 %; White Blood Count 17.2 K/mcL (4.3-11.1)
[2019-06-16 05:34] LABS: BUN/Creatinine Ratio 7 (6-26); Blood Urea Nitrogen 8 mg/dL (6-20); Calcium 8.8 mg/dL (8.6-10.3); Carbon Dioxide 30 mEq/L (23-29); Chloride 102 mEq/L (98-107); Glucose 100 mg/dL (70-105); Osmolality,Calculated 288 (280-300); Potassium 3.6 mEq/L (3.5-5.1); Sodium 140 mEq/L (136-145); eGFR For African Americans > 60 (> 60); eGFR For Non-African Americans > 60 (> 60)
[2019-06-16] MEDS: Piperacillin/Tazobactam 3.375 GM in 0.9 % Sodium Chloride Mini Bag 100 ML IVPB SCH (10:35)
[2019-06-16] MEDS ORDERED: Nystatin SUSP 5 ML UD.LIQ BC SCH (13:00)
[2019-06-16 16:16] VITALS: BP 115/77
== END 2019-06-16 16:40 | disposition home or self-care (01) | DRG 391 ==
LOC: EMEROOARM 09:16 → 3ANU 09:16 → SUATTDRO 13:34 → 3ANU 14:16 → SUATTDRO 15:09 → 3ANU 18:56
PROVIDERS: ADMIT Internal Medicine Nephrology; ATTEND Internal Medicine

== ENCOUNTER 2019-07-04 09:59 | Inpatient (IN) ==
[2019-07-04] MEDS ORDERED: *HR* HYDROmorphone (PF) 1 MG/ML SYRINGE IVP ONE ×2 (10:27→12:23)
[2019-07-04] MEDS ORDERED: Ondansetron 4 MG/2 ML VIAL IVP ONE ×2 (10:27→12:23)
[2019-07-04] MEDS ORDERED: 0.9 % Sodium Chloride 1,000 ML IVC ONE (10:27)
[2019-07-04 10:43] LABS: Monocytes % 3.5 %
[2019-07-04 10:44] LABS: Basophils # 0.1 K/mcL (0.0-0.2); Basophils % 0.4 %; Hemoglobin 18.1 g/dL (12.9-16.9); Immature Granulocytes % 0.6 % (0-4); Lymphocytes # 1.5 K/mcL (0.6-4.6); Lymphocytes % 5.3 %; Mean Corpuscular HGB Conc 35.5 g/dL (31.6-35.5); Mean Corpuscular Hemoglobin 32.5 pg (28.0-33.3); Mean Corpuscular Volume 91.6 fL (83.0-100.0); Mean Platelet Volume 9.4 fL (9.4-12.4); Neutrophils # 24.9 K/mcL (1.6-8.9); Platelet Count 495 K/mcL (140-400); Red Blood Count 5.57 M/mcL (4.19-5.50); Red Cell Distribution Width 13.2 % (11.5-14.5); Segmented Neutrophils % 90.2 %; White Blood Count 27.6 K/mcL (4.3-11.1)
[2019-07-04] MEDS ORDERED: Isovue-370 500 ML BOTTLE IVP ONE (10:56)
[2019-07-04 11:06] LABS: Alanine Aminotransferase 15 Units/L (7-52); Albumin 4.7 g/dL (3.5-5.7); Albumin/Globulin Ratio 1.3 (1.1-2.2); Alkaline Phosphatase 90 Units/L (34-104); Aspartate Amino Transferase 15 Units/L (13-39); BUN/Creatinine Ratio 16 (6-26); Bilirubin,Direct 0.1 mg/dL (0.0-0.2); Bilirubin,Indirect 0.4 mg/dL (0.0-1.2); Bilirubin,Total 0.5 mg/dL (0.3-1.0); Blood Urea Nitrogen 15 mg/dL (6-20); Calcium 9.8 mg/dL (8.6-10.3); Carbon Dioxide 27 mEq/L (23-29); Chloride 103 mEq/L (98-107); Globulin 3.7 g/dL (2.4-3.5); Glucose 173 mg/dL (70-105); Lipase 21 Units/L (11-82); Osmolality,Calculated 295 (280-300); Sodium 140 mEq/L (136-145); Total Protein 8.4 g/dL (6.4-8.9); Troponin I < 0.03 ng/mL (< 0.04); eGFR For African Americans > 60 (> 60); eGFR For Non-African Americans > 60 (> 60)
[2019-07-04] MEDS ORDERED: Piperacillin/Tazobactam 3.375 GM in 0.9 % Sodium Chloride Mini Bag 100 ML IVPB STA (11:09)
--- NOTE | 2019-07-04 11:11 | Emergency Department Note ---
Disposition Clinical Impression: Small bowel obstruction, Diverticulitis, Perforation of sigmoid colon due to diverticulitis Disposition: Admitted As Inpatient Condition: Fair Referrals: Noble Banks DO [Primary Care Provider] - Forms: ED Satisfaction Letter Time of Disposition: 12:30 General Adult HPI - General Chief complaint: ED Nausea/Vomiting/Diarrhea Stated complaint: Vomiting,Fever,Diverticulitis Time Seen by Provider: 07/04/19 10:05 Source: patient Mode of arrival: private vehicle Limitations: no limitations Nursing Notes Reviewed: Yes Vital Signs Reviewed: Yes - History of Present Illness HPI Narrative: Patient is a 48-year-old male with a past medical history of primary immunodeficiency who presents with abdominal pain. Patient was diagnosed with acute diverticulitis approximately 2-1/2 weeks ago and was admitted. At this time he also had a small perforation and was placed on ciprofloxacin and metronidazole. Patient states that his abdominal pain 2-1/2 weeks ago was located in the right lower quadrant and has since improved. Patient's abdominal pain at this time is located in the epigastric and left upper quadrant region. He describes this as a constant dull pain with occasional sharp pain. This has been occurring since Thursday evening. Of note that during afternoon he did eat [place] buffet. Patient admits to a few episodes of emesis which started yesterday evening. Emesis was nonbloody and nonbilious. Patient admits to normal bowel movements, he denies diarrhea, constipation, hematochezia. Patient admits to nausea, shortness of breath, and fevers up to 101 at home (he states that his temperatures very due to his primary immunodeficiency). He denies chest pain, headache, dysuria, increased urinary frequency, blurry vision, swelling in the extremities. Pain Scale: 5 - Related Data Home Medications Medication Instructions Recorded Confirmed Phenylephrine HCl [Sudafed PE] 10 mg PO Q6H 06/14/19 07/04/19 Ranitidine HCl [[employer] Professor] 150 mg PO 3-4XD 06/14/19 07/04/19 Previous Rx's Medication Instructions Recorded Acetaminophen [Tylenol] 500 mg PO Q4H PRN #0 06/16/19 Ibuprofen [Motrin] 600 mg PO Q4H PRN #0 06/16/19 Allergies Allergy/AdvReac Type Severity Reaction Status Date / Time No Known Allergies Allergy Verified 06/15/19 08:48 All systems ED: reviewed and negative except as stated. Review of Systems: As Per HPI Constitutional: Reports: fever. Denies: chills, weakness Cardiovascular: Denies: chest pain, palpitations, dyspnea on exertion Respiratory: Reports: dyspnea. Denies: cough, wheezes Gastrointestinal: Reports: abdominal pain (Epigastric and left upper quadrant), nausea, vomiting. Denies: diarrhea, constipation, hematemesis, hematochezia Genitourinary: Denies: urgency, dysuria, frequency Musculoskeletal: Denies: back pain, neck pain Integumentary: Denies: rash Neurological: Denies: headache, weakness Endocrine: Denies: fatigue Past Medical History - Past Medical History Attestation: Yes The following information was validated with the patient. Source: patient Medical history: Reports: myocardial infarction, other Surgical history: Reports: orthopedic, other Psychiatric history: Reports: no psych history - Social History Smoking Status: Current every day smoker Smokeless Tobacco Status: No Alcohol use: Reports: none Drug use: Reports: none Physical Exam - General Limitations: no limitations General appearance: alert - Head Head exam: atraumatic, normocephalic - Eye Eye exam: Present: normal appearance, PERRL, EOMI - ENT ENT exam: normal exam, normal oropharynx - Neck Neck exam: Present: normal inspection, full ROM - Chest Chest inspection: Present: normal inspection, symmetric chest wall rise - Respiratory Respiratory exam: Present: normal lung sounds bilaterally. Absent: respiratory distress, wheezes - Cardiovascular Cardiovascular exam: Present: regular rate, normal rhythm, normal heart sounds - Abdominal Exam Abdominal exam: Present: tenderness, guarding, rigidity, normal bowel sounds. Absent: rebound Abdominal tenderness: Present: RUQ, epigastrium - Extremities Exam Extremities exam: Present: normal inspection, full ROM - Back Exam Back exam: Present: normal inspection, full ROM - Neurological Exam Neurological exam: Present: alert, oriented X3 - Psychiatric Psychiatric exam: Present: normal affect, normal mood - Skin Skin exam: Present: warm, dry, intact. Absent: rash Course Course Narrative: Patient with tenderness to palpation of his left upper and right lower quadrant. Concerned because he did have diverticulitis with microperforation previously. States he did get better however he is getting significantly worse last night. Does have a fever but has a history of primary immunodeficiency disorder. He was noted to have leukocytosis he was placed on Zosyn. CT of his abdomen with IV contrast that showed continuation of the microperforation as well as a small bowel obstruction. We did provide him with pain medication while he is here as well as antinausea medication. He has not had any episodes of vomiting here however he did have an episode of nonbilious nonbloody episode last night and this morning his home. He states after he vomits he does feel better. CT has no desire to eat at this time. Did not feel like he wanted the last night either. We did discuss the patient with the on-call surgeon who is agreeing to accept the patient to their service. Patient is stable. - Reevaluation(s) Reevaluation #1: Patient's lactate is normal. He was given a liter of fluid as well as pain medication and antiemetics and Zosyn. - Consultations Consultation #1: Dr Shahbaz Arnold accepted Pt in stable condition. Time: 12:24 Vital Signs Temperature 98.0 F 07/04/19 10:11 Pulse Rate 118 07/04/19 10:11 Respiratory Rate 16 07/04/19 10:11 Blood Pressure 147/91 07/04/19 10:11 O2 Sat by Pulse Oximetry 97 07/04/19 10:11 Temperature 98.0 F 07/04/19 10:11 Pulse Rate 104 07/04/19 12:30 Respiratory Rate 16 07/04/19 12:30 Blood Pressure 131/92 07/04/19 12:30 O2 Sat by Pulse Oximetry 97 07/04/19 12:30 Oxygen Delivery Oxygen Delivery Room Air Medical Decision Making - Medical Records Medical records reviewed: Yes I reviewed the patient's medical records. - Lab Data Lab results reviewed: Yes I reviewed the patient's lab results. Result diagrams: 07/04/19 10:19 07/04/19 10:19 Lab Results 07/04/19 07/04/19 07/04/19 Range/Units 10: 10:19 10:19 WBC 27.6 H (4.3-11.1) K/mcL RBC 5.57 H (4.19-5.50) M/mcL Hgb 18.1 H (12.9-16.9) g/dL Hct 51.0 H (37.5-50.1) % MCV 91.6 (83.0-100.0) fL MCH 32.5 (28.0-33.3) pg MCHC 35.5 (31.6-35.5) g/dL RDW 13.2 (11.5-14.5) % Plt Count 495 H (140-400) K/mcL MPV 9.4 (9.4-12.4) fL Immature Gran % 0.6 (0-4) % Seg Neutrophils % 90.2 % Lymphocytes % 5.3 % Monocytes % 3.5 % Eosinophils % 0.0 % Basophils % 0.4 % Neutrophils # 24.9 H (1.6-8.9) K/mcL Lymphocytes # 1.5 (0.6-4.6) K/mcL Monocytes # 1.0 (0.0-1.3) K/mcL Eosinophils # 0.0 (0.0-0.6) K/mcL Basophils # 0.1 (0.0-0.2) K/mcL Platelet Estimate Slight increase H (Normal) PT 11.0 (9.4-12.1) Seconds INR 1.0 APTT 30.0 (26.0-36.0) Seconds Sodium 140 (136-145) mEq/L Potassium 4.0 (3.5-5.1) mEq/L Chloride 103 (98-107) mEq/L Carbon Dioxide 27 (23-29) mEq/L BUN 15 (6-20) mg/dL Creatinine 0.92 (0.70-1.30) mg/dL Est GFR ( Amer) > 60 (> 60) Est GFR (Non-Af Amer) > 60 (> 60) BUN/Creatinine Ratio 16 (6-26) Glucose 173 H (70-105) mg/dL Calculated Osmolality 295 (280-300) Lactic Acid (0.5-2.2) mmol/L Calcium 9.8 (8.6-10.3) mg/dL Total Bilirubin 0.5 (0.3-1.0) mg/dL Direct Bilirubin 0.1 (0.0-0.2) mg/dL Indirect Bilirubin 0.4 (0.0-1.2) mg/dL AST 15 (13-39) Units/L ALT 15 (7-52) Units/L Alkaline Phosphatase 90 (34-104) Units/L Troponin I < 0.03 (< 0.04) ng/mL Serum Total Protein 8.4 (6.4-8.9) g/dL Albumin 4.7 (3.5-5.7) g/dL Globulin 3.7 H (2.4-3.5) g/dL Albumin/Globulin Ratio 1.3 (1.1-2.2) Lipase 21 (11-82) Units/L Urine Color (Yellow) Urine Clarity (Clear) Urine pH (5.0-8.0) pH Units Ur Specific [place] (1.010-1.025) Urine Protein (Neg-Trace) mg/dL Urine Glucose (UA) (Normal) mg/dL Urine Ketones (Negative) mg/dL Urine Blood (Negative) Urine Nitrite (Negative) Urine Bilirubin (Negative) Urine Urobilinogen (Normal) mg/dL Ur Leukocyte Esterase (Negative) Urine Microscopic RBC (0-3) per hpf Urine Microscopic WBC (0-3) per hpf Ur Squamous Epith Cells (None-Few) per lpf Urine Bacteria (None-Few) per hpf Hyaline Casts (None-Few) per lpf Ur Culture Indicated? (NO) 07/04/19 07/04/19 07/04/19 Range/Units 10:19 11:18 12:24 WBC (4.3-11.1) K/mcL RBC (4.19-5.50) M/mcL Hgb (12.9-16.9) g/dL Hct (37.5-50.1) % MCV (83.0-100.0) fL MCH (28.0-33.3) pg MCHC (31.6-35.5) g/dL RDW (11.5-14.5) % Plt Count (140-400) K/mcL MPV (9.4-12.4) fL Immature Gran % (0-4) % Seg Neutrophils % % Lymphocytes % % Monocytes % % Eosinophils % % Basophils % % Neutrophils # (1.6-8.9) K/mcL Lymphocytes # (0.6-4.6) K/mcL Monocytes # (0.0-1.3) K/mcL Eosinophils # (0.0-0.6) K/mcL Basophils # (0.0-0.2) K/mcL Platelet Estimate (Normal) PT (9.4-12.1) Seconds INR APTT (26.0-36.0) Seconds Sodium (136-145) mEq/L Potassium (3.5-5.1) mEq/L Chloride (98-107) mEq/L Carbon Dioxide (23-29) mEq/L BUN (6-20) mg/dL Creatinine (0.70-1.30) mg/dL Est GFR ( Amer) (> 60) Est GFR (Non-Af Amer) (> 60) BUN/Creatinine Ratio (6-26) Glucose (70-105) mg/dL Calculated Osmolality (280-300) Lactic Acid 1.1 1.0 (0.5-2.2) mmol/L Calcium (8.6-10.3) mg/dL Total Bilirubin (0.3-1.0) mg/dL Direct Bilirubin (0.0-0.2) mg/dL Indirect Bilirubin (0.0-1.2) mg/dL AST (13-39) Units/L ALT (7-52) Units/L Alkaline Phosphatase (34-104) Units/L Troponin I (< 0.04) ng/mL Serum Total Protein (6.4-8.9) g/dL Albumin (3.5-5.7) g/dL Globulin (2.4-3.5) g/dL Albumin/Globulin Ratio (1.1-2.2) Lipase (11-82) Units/L Urine Color Dark Yellow (Yellow) Urine Clarity Clear (Clear) Urine pH 6.0 (5.0-8.0) pH Units Ur Specific [place] > 1.030 H (1.010-1.025) Urine Protein 30 H (Neg-Trace) mg/dL Urine Glucose (UA) Normal (Normal) mg/dL Urine Ketones Trace H (Negative) mg/dL Urine Blood Small H (Negative) Urine Nitrite Negative (Negative) Urine Bilirubin Small H (Negative) Urine Urobilinogen Normal (Normal) mg/dL Ur Leukocyte Esterase Negative (Negative) Urine Microscopic RBC 30-50 H (0-3) per hpf Urine Microscopic WBC 3-5 H (0-3) per hpf Ur Squamous Epith Cells Many H (None-Few) per lpf Urine Bacteria None Seen (None-Few) per hpf Hyaline Casts Moderate H (None-Few) per lpf Ur Culture Indicated? NO (NO) - Radiology Data Radiology results reviewed: Yes I reviewed the patient's radiology results. Abdomen/Pelvis CT 07/04/19 11:54 IMPRESSION: Persistent findings of sigmoid diverticulitis with adjacent extraluminal air, in keeping with micro perforation. Findings are suggestive of small bowel obstruction with multiple dilated fluid-filled loops of small bowel throughout the abdomen and pelvis. Decompressed distal ileum is thick walled, which can reflect ileitis. 3 mm calculus at the right UVJ, new as compared to prior, without significant hydronephrosis. Additional bilateral nonobstructing nephrolithiasis. Ascites. D/ / Clement Alves MD / Clement Alves MD Interpreting Provider: Clement Alves MD - EKG Data EKG #1 EKG attestation: Yes I reviewed and interpreted this EKG. EKG results narrative: Sinus tachycardia at a rate of 109. [place] interval is 148. QRS duration is 74. QT is 3-22. QTC is 434. No signs of acute ischemia. Good R-wave progression. No signs of WPW or Brugada. No significant change from previous EKG dated 07/21/2017. Attestation Statement - Attestation Attestation: I, Jason Shaver DO, examined this patient [id number] and my medical decision-making was reviewed with Dr. Deirdre Witt, Resident Physician. I agree with the documented findings, disposition and treatment plan as described except to the extent set forth below. I personally supervised and was present for the houser/critical portions of the procedures completed by the resident documented below. Please see my progress notes for details.
--- NOTE | 2019-07-04 11:31 | Emergency Department Note ---
Disposition Clinical Impression: Perforation of sigmoid colon due to diverticulitis, Small bowel obstruction Disposition: Admitted As Inpatient Condition: Fair Referrals: Noble Banks DO [Partnered Physician] - Forms: ED Satisfaction Letter Time of Disposition: 12:45 General Adult HPI - General Chief complaint: ED Nausea/Vomiting/Diarrhea Stated complaint: Vomiting,Fever,Diverticulitis Time Seen by Provider: 07/04/19 10:05 Source: patient Mode of arrival: private vehicle Limitations: no limitations - History of Present Illness Pain Scale: 5 - Related Data Home Medications Medication Instructions Recorded Confirmed Phenylephrine HCl [Sudafed PE] 10 mg PO Q6H 06/14/19 06/14/19 Ranitidine HCl [Acid Windows Application Developer] 150 mg PO 3-4XD 06/14/19 06/15/19 Previous Rx's Medication Instructions Recorded Acetaminophen [Tylenol] 500 mg PO Q4H PRN #0 06/16/19 Ciprofloxacin [Cipro] 500 mg PO BID 7 Days #14 tablet 06/16/19 Clotrimazole [Mycelex Toyin] 10 mg MM 5XD 14 Days #70 toyin 06/16/19 Clotrimazole [Mycelex Toyin] 10 mg MM 5XD 14 Days #70 toyin 06/16/19 Ibuprofen [Motrin] 600 mg PO Q4H PRN #0 06/16/19 metroNIDAZOLE [Flagyl] 500 mg PO TID 14 Days #42 tablet 06/16/19 Allergies Allergy/AdvReac Type Severity Reaction Status Date / Time No Known Allergies Allergy Verified 06/15/19 08:48 Constitutional: Reports: fever. Denies: chills, weakness Cardiovascular: Denies: chest pain, palpitations, dyspnea on exertion Respiratory: Reports: dyspnea. Denies: cough, wheezes Gastrointestinal: Reports: abdominal pain (Epigastric and left upper quadrant), nausea, vomiting. Denies: diarrhea, constipation, hematemesis, hematochezia Genitourinary: Denies: urgency, dysuria, frequency Musculoskeletal: Denies: back pain, neck pain Integumentary: Denies: rash Neurological: Denies: headache, weakness Endocrine: Denies: fatigue Past Medical History - Past Medical History Medical history: Reports: myocardial infarction, other Surgical history: Reports: orthopedic, other Psychiatric history: Reports: no psych history - Social History Smoking Status: Current every day smoker Smokeless Tobacco Status: No Alcohol use: Reports: none Drug use: Reports: none Physical Exam - General Limitations: no limitations General appearance: alert Course Vital Signs Temperature 98.0 F 07/04/19 10:11 Pulse Rate 118 07/04/19 10:11 Respiratory Rate 16 07/04/19 10:11 Blood Pressure 147/91 07/04/19 10:11 O2 Sat by Pulse Oximetry 97 07/04/19 10:11 Temperature 98.0 F 07/04/19 10:11 Pulse Rate 104 07/04/19 11:18 Respiratory Rate 16 07/04/19 11:18 Blood Pressure 134/84 07/04/19 11:18 O2 Sat by Pulse Oximetry 95 07/04/19 11:18 Oxygen Delivery Oxygen Delivery Room Air Medical Decision Making - Lab Data Result diagrams: 07/04/19 10:19 07/04/19 10:19 Lab Results 07/04/19 07/04/19 07/04/19 Range/Units 10:19 10:19 10:19 WBC 27.6 H (4.3-11.1) K/mcL RBC 5.57 H (4.19-5.50) M/mcL Hgb 18.1 H (12.9-16.9) g/dL Hct 51.0 H (37.5-50.1) % MCV 91.6 (83.0-100.0) fL MCH 32.5 (28.0-33.3) pg MCHC 35.5 (31.6-35.5) g/dL RDW 13.2 (11.5-14.5) % Plt Count 495 H (140-400) K/mcL MPV 9.4 (9.4-12.4) fL Immature Gran % 0.6 (0-4) % Seg Neutrophils % 90.2 % Lymphocytes % 5.3 % Monocytes % 3.5 % Eosinophils % 0.0 % Basophils % 0.4 % Neutrophils # 24.9 H (1.6-8.9) K/mcL Lymphocytes # 1.5 (0.6-4.6) K/mcL Monocytes # 1.0 (0.0-1.3) K/mcL Eosinophils # 0.0 (0.0-0.6) K/mcL Basophils # 0.1 (0.0-0.2) K/mcL Platelet Estimate Slight increase H (Normal) PT 11.0 (9.4-12.1) Seconds INR 1.0 APTT 30.0 (26.0-36.0) Seconds Sodium 140 (136-145) mEq/L Potassium 4.0 (3.5-5.1) mEq/L Chloride 103 (98-107) mEq/L Carbon Dioxide 27 (23-29) mEq/L BUN 15 (6-20) mg/dL Creatinine 0.92 (0.70-1.30) mg/dL Est GFR ( Amer) > 60 (> 60) Est GFR (Non-Af Amer) > 60 (> 60) BUN/Creatinine Ratio 16 (6-26) Glucose 173 H (70-105) mg/dL Calculated Osmolality 295 (280-300) Lactic Acid (0.5-2.2) mmol/L Calcium 9.8 (8.6-10.3) mg/dL Total Bilirubin 0.5 (0.3-1.0) mg/dL Direct Bilirubin 0.1 (0.0-0.2) mg/dL Indirect Bilirubin 0.4 (0.0-1.2) mg/dL AST 15 (13-39) Units/L ALT 15 (7-52) Units/L Alkaline Phosphatase 90 (34-104) Units/L Troponin I < 0.03 (< 0.04) ng/mL Serum Total Protein 8.4 (6.4-8.9) g/dL Albumin 4.7 (3.5-5.7) g/dL Globulin 3.7 H (2.4-3.5) g/dL Albumin/Globulin Ratio 1.3 (1.1-2.2) Lipase 21 (11-82) Units/L 07/04/19 07/04/19 Range/Units 10:19 11:18 WBC (4.3-11.1) K/mcL RBC (4.19-5.50) M/mcL Hgb (12.9-16.9) g/dL Hct (37.5-50.1) % MCV (83.0-100.0) fL MCH (28.0-33.3) pg MCHC (31.6-35.5) g/dL RDW (11.5-14.5) % Plt Count (140-400) K/mcL MPV (9.4-12.4) fL Immature Gran % (0-4) % Seg Neutrophils % % Lymphocytes % % Monocytes % % Eosinophils % % Basophils % % Neutrophils # (1.6-8.9) K/mcL Lymphocytes # (0.6-4.6) K/mcL Monocytes # (0.0-1.3) K/mcL Eosinophils # (0.0-0.6) K/mcL Basophils # (0.0-0.2) K/mcL Platelet Estimate (Normal) PT (9.4-12.1) Seconds INR APTT (26.0-36.0) Seconds Sodium (136-145) mEq/L Potassium (3.5-5.1) mEq/L Chloride (98-107) mEq/L Carbon Dioxide (23-29) mEq/L BUN (6-20) mg/dL Creatinine (0.70-1.30) mg/dL Est GFR ( Amer) (> 60) Est GFR (Non-Af Amer) (> 60) BUN/Creatinine Ratio (6-26) Glucose (70-105) mg/dL Calculated Osmolality (280-300) Lactic Acid 1.1 1.0 (0.5-2.2) mmol/L Calcium (8.6-10.3) mg/dL Total Bilirubin (0.3-1.0) mg/dL Direct Bilirubin (0.0-0.2) mg/dL Indirect Bilirubin (0.0-1.2) mg/dL AST (13-39) Units/L ALT (7-52) Units/L Alkaline Phosphatase (34-104) Units/L Troponin I (< 0.04) ng/mL Serum Total Protein (6.4-8.9) g/dL Albumin (3.5-5.7) g/dL Globulin (2.4-3.5) g/dL Albumin/Globulin Ratio (1.1-2.2) Lipase (11-82) Units/L Attestation Statement - Attestation Attestation: I, Jason Shaver DO, examined this patient [id number] and my medical decision-making was reviewed with Dr. Deirdre Witt, Resident Physician. I agree with the documented findings, disposition and treatment plan as described except to the extent set forth below. I personally supervised and was present for the houser/critical portions of the procedures completed by the resident documented below. Please see my progress notes for details. 48-year-old male presents emergency room for evaluation of abdominal pain. Symptoms onset was yesterday. Symptoms progressively become worse. He was recently admitted and discharged from the hospital at the end of May for di verticular disease with a microperforation. He did not have surgery. Vital signs show tachycardia initially on presentation. Patient is showing some moderate discomfort in the abdomen. Is temperature is otherwise normal. Patient denies any chest pain shortness of breath fevers chills nausea vomiting or diarrhea. No headache no vision change. He has not fallen or injured himself. Moderate distress is noted on physical exam. Head is atraumatic. Pupils are equal round reactive. Extracted muscles are intact. Oropharynx is patent. Trachea is midline. Abdomen is not distended but he does have discomfort and pain with light percussion and palpation to the abdominal wall. Lungs are clear heart is regular chest wall shows no deformity trauma or injury. Extremities otherwise normal. Pulses are intact. Patient is a history of diverticular disease of microperforation during his last admission. And hematocrit regimen was completed approximately 4 days ago at home. Patient will be started with fluids pain medication nausea medication and have CBC chemistry lactic acid as well as liver function testing completed this time. Urinalysis will also be collected. Patient will have antibiotic regimen started if needed. CT imaging the abdomen will be ordered. EKG was collected and reviewed by myself and Dr. Jennings physician's note. No critical care applied the patient's treatment course at this time. See detailed documentation the physical exam, medical intervention, medical decision-making disposition the resident physician's note. 1215 Patient is found to have persistent microperforation what looks like a new small bowel obstruction. Patient has not had any emesis since yesterday. His symptoms and discomfort are isolated to the abdomen with pain. Symptoms of been better here at this time. Antibiotic regimen his artery been ordered. The on- call surgical provider Dr. Coker. Repeat dose of pain medication and nausea medication will be given. Patient will be monitored here until admission process is completed. No other acute concerns or issues noted this time. Patient will be accepted to the surgical service for continued management and care. Patient be monitored here in emergency department until the admission process is completed
[2019-07-04 12:45] LABS: Bilirubin,Urine Small (Negative); Blood,Urine Small (Negative); Clarity,Urine Clear (Clear); Color,Urine Dark Yellow (Yellow); Glucose,Urine (UA) Normal (Normal); Ketones,Urine Trace mg/dL (Negative); Leukocyte Esterase,Urine Negative (Negative); Nitrite,Urine Negative (Negative); Protein,Urine 30 mg/dL (Neg-Trace); Specific Gravity,Urine > 1.030 (1.010-1.025); Urobilinogen,Urine Normal (Normal)
[2019-07-04 12:47] LABS: Bacteria,Urine None Seen per hpf (None-Few); Hyaline Casts,Urine Moderate per lpf (None-Few); RBC,Urine 30-50 per hpf (0-3); Squamous Epithelial Cell,Urine Many per lpf (None-Few)
--- NOTE | 2019-07-04 14:03 | Electrocardiograph Report ---
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
--- NOTE | 2019-07-04 14:38 | Acute Care Surgery H&P ---
Date of Encounter: 07/04/19 Time of Encounter: 14:30 Assessment and Plan (1) Perforation of sigmoid colon due to diverticulitis Current Visit: Yes Status: Acute The assessment and plan as outlined above was discussed with the patient and/or family members who expressed understanding and agreement. All questions were answered. Discussed with the patient the dianosis of sigmoid diverticulitis with recurrent microperforation and possible small bowel obstruction. Recommend exploratory laparotomy with sigmoid colon resection and probable colostomy. Procedure, risks and benefits disscused with patient and his . Delay to surgery may risk worsening infection and sepsis. Risks for complications of surgery include but, are not limited to bleeding, infection, small bowel injury, ureteral injury, IN, stroke, DVT/PE. Pt understands and wishes to proceed as advised. NPO. IVF. IV abx. Consent obtained. Surgery is scheduled. History of Present Illness Chief complaint: abdominal pain and nausea HPI: Mr. Singh is a 48 year old male presents to [facility] ED c/o severe abdominal pain. Pain RLQ > LLQ >LUQ. Pt reports pain is predominantly in RLQ. Pain radiates to LLQ. However, pt also c/o pain in that was LUQ. Pt reports pain has been present since yesterday. He states that the chronic, intermittent low grade pain lower abdominal pain from previous episode of sigmoidectomy with microperforation worsened to the point of intolerence today. Now, the pain is constant and severe. Pt reports nausea and vomiting. Pt denies hematemesis or coffee ground emesis. Pt reports flatus and BM. BM have become loose today. Pt denies hematochezia or melena. Reports decreased appetite. Denies fever. Past Med Surg Social Fam HX - Past Medical History Medical history: myocardial infarction, other Additional medical history: diverticulitis, primary immune deficiency. Psychiatric history: no psych history - Past Surgical History Surgical History: orthopedic, other Additional surgical history: MULTIPLE ORTHO SURGERIES - Social History Smoking Status: Current every day smoker Smokeless Tobacco Status: No Alcohol use: none Drug use: none - Family History Father Living Status: Hx Family Cardiac Disorders: Yes Medications and Allergies Phenylephrine HCl [Sudafed PE] 10 mg PO Q6H 06/14/19 [History] Ranitidine HCl [Acid Tin Container Straightener] 75 mg PO TID 06/14/19 [History] Acetaminophen [Tylenol] 500 mg PO Q4H PRN #0 06/16/19 [Rx] Ibuprofen [Motrin] 600 mg PO Q4H PRN #0 06/16/19 [Rx] Allergy/AdvReac Type Severity Reaction Status Date / Time No Known Allergies Allergy Verified 06/15/19 08:48 Review of Systems All systems PM: The remainder of the systems were reviewed and are negative - Constitutional as per HPI, anorexia, chills, fatigue, no fever(s), no night sweats, no weakness - EENT Nose, mouth and throat: no dizziness, no dry mouth, no dysphagia, no nasal congestion, no nasal discharge, no sinus pain, no sinus pressure, no sore throat - Cardiovascular no chest pain, no diaphoresis, no dyspnea, no edema - Respiratory no cough, no dyspnea, no wheezing - Gastrointestinal abdominal pain, bloating, nausea, no constipation, no diarrhea, no hematemesis, no hematochezia, no vomiting - Genitourinary no flank pain, no hematuria, no urinary frequency - Musculoskeletal no back pain, no joint swelling, no limited range of motion, no neck pain - Integumentary no dry skin, no pruritus, no rash, no wounds, no jaundice - Neurological no confusion, no dizziness, no focal weakness, no weakness - Psychiatric no anxiety, no depression - Endocrine no fatigue - Hematologic/Lymphatic no easy bleeding, no easy bruising General Surgery Exam Initial Vital Signs Temp Pulse Resp BP Pulse Ox 98.0 F 118 16 147/91 97 07/04/19 10:11 07/04/19 10:11 07/04/19 10:11 07/04/19 10:11 07/04/19 10:11 - General physical appearance moderate distress, moderate pain, chronically ill - Eyes PERRL, normal ocular movement. negative: icteric - ENT no congestion, dry mucosa. negative: nasal discharge - Neck trachea midline, no venous distension - Respiratory normal respiratory effort, clear to auscultation - Cardiovascular Cardiovascular exam: Present: RRR. Absent: JVD - Abdomen Abdomen general surgery: Present: bowel sounds present, soft, distended, tender Abdominal Tenderness: Present: LUQ, RLQ, LLQ - Genitourinary Present: normal penis with no external lesions - Integumentary Integumentary general surgery: Present: warm and dry - Neurologic Present: CN 2-12 grossly intact, normal coordination - Musculoskeletal Present: normal posture - Psychiatric Psychiatric general surgery: Present: A&Ox3, appropriate Results - Labs 07/04/19 10:19 07/04/19 10:19 Abnormal lab results WBC 27.6 K/mcL (4.3-11.1) H 07/04/19 10:19 RBC 5.57 M/mcL (4.19-5.50) H 07/04/19 10:19 Hgb 18.1 g/dL (12.9-16.9) H 07/04/19 10:19 Hct 51.0 % (37.5-50.1) H 07/04/19 10:19 Plt Count 495 K/mcL (140-400) H 07/04/19 10:19 Neutrophils # 24.9 K/mcL (1.6-8.9) H 07/04/19 10:19 Platelet Estimate Slight increase (Normal) H 07/04/19 10:19 Glucose 173 mg/dL (70-105) H 07/04/19 10:19 Globulin 3.7 g/dL (2.4-3.5) H 07/04/19 10:19 Ur Specific Ferney > 1.030 (1.010-1.025) H 07/04/19 12:24 Urine Protein 30 mg/dL (Neg-Trace) H 07/04/19 12:24 Urine Ketones Trace mg/dL (Negative) H 07/04/19 12:24 Urine Blood Small (Negative) H 07/04/19 12:24 Urine Bilirubin Small (Negative) H 07/04/19 12:24 Urine Microscopic RBC 30-50 per hpf (0-3) H 07/04/19 12:24 Urine Microscopic WBC 3-5 per hpf (0-3) H 07/04/19 12:24 Ur Squamous Epith Cells Many per lpf (None-Few) H 07/04/19 12:24 Hyaline Casts Moderate per lpf (None-Few) H 07/04/19 12:24 Diabetes panel 07/04/19 Range/Units 10:19 Sodium 140 (136-145) mEq/L Potassium 4.0 (3.5-5.1) mEq/L Chloride 103 (98-107) mEq/L Carbon Dioxide 27 (23-29) mEq/L BUN 15 (6-20) mg/dL Creatinine 0.92 (0.70-1.30) mg/dL Glucose 173 H (70-105) mg/dL Calcium 9.8 (8.6-10.3) mg/dL AST 15 (13-39) Units/L ALT 15 (7-52) Units/L Alkaline Phosphatase 90 (34-104) Units/L Albumin 4.7 (3.5-5.7) g/dL Calcium panel 07/04/19 Range/Units 10:19 Calcium 9.8 (8.6-10.3) mg/dL Albumin 4.7 (3.5-5.7) g/dL Pituitary panel 07/04/19 Range/Units 10:19 Sodium 140 (136-145) mEq/L Potassium 4.0 (3.5-5.1) mEq/L Chloride 103 (98-107) mEq/L Carbon Dioxide 27 (23-29) mEq/L BUN 15 (6-20) mg/dL Creatinine 0.92 (0.70-1.30) mg/dL Glucose 173 H (70-105) mg/dL Calcium 9.8 (8.6-10.3) mg/dL Adrenal panel 07/04/19 Range/Units 10:19 Sodium 140 (136-145) mEq/L Potassium 4.0 (3.5-5.1) mEq/L Chloride 103 (98-107) mEq/L Carbon Dioxide 27 (23-29) mEq/L BUN 15 (6-20) mg/dL Creatinine 0.92 (0.70-1.30) mg/dL Glucose 173 H (70-105) mg/dL Calcium 9.8 (8.6-10.3) mg/dL Total Bilirubin 0.5 (0.3-1.0) mg/dL AST 15 (13-39) Units/L ALT 15 (7-52) Units/L Alkaline Phosphatase 90 (34-104) Units/L Albumin 4.7 (3.5-5.7) g/dL All other labs normal. - Imaging CT scan - abdomen: image reviewed (sigmoid diverticulitis with free air, possible small bowel obstruction)
[2019-07-04] MEDS: Ondansetron 4 MG/2 ML VIAL IVP PRN ×2 (16:21→21:59)
[2019-07-04] MEDS ORDERED: Fluconazole 200 MG/100 ML 200 MG/100 ML BAG IVPB SCH (16:45)
[2019-07-04] MEDS ORDERED: Pantoprazole 40 MG VIAL IVP SCH (16:45)
[2019-07-04] MEDS ORDERED: *HR* Heparin 5,000 UNIT/ML VIAL SQ SCH (18:00)
[2019-07-04] MEDS ORDERED: Metoclopramide 10 MG/2 ML VIAL IVP PRN (18:15)
[2019-07-04] MEDS: Piperacillin/Tazobactam 3.375 GM in 0.9 % Sodium Chloride Mini Bag 100 ML IVPB SCH (18:19)
[2019-07-04] MEDS: *HR* FentaNYL (PF) 100 MCG/2 ML VIAL IVP PRN ×2 (18:36→21:17)
[2019-07-04] MEDS ORDERED: Albuterol 2.5 MG/3 ML NEBULIZER IH ONE (22:50)
--- NOTE | 2019-07-04 22:53 | Anesthesia Evaluation PreOp ---
Date of Encounter: 07/04/19 Time of Encounter: 22:50 - Past History Planned Operation: Exploratory Lap Colectomy Cardiac History: [place] (1994), Other (CAD) Pulmonary History: Smoker DIP FILLER History: Denies Any Significant HX Other Medical History: Denies Any Significant HX Anesthesia History: No Prior Anesthetic Complications Alcohol Use: none Drug use: none Medications and Allergies Phenylephrine HCl [Sudafed PE] 10 mg PO Q6H 06/14/19 [History] Ranitidine HCl [Acid Hotel Guest Service Agent] 75 mg PO TID 06/14/19 [History] Acetaminophen [Tylenol] 500 mg PO Q4H PRN #0 06/16/19 [Rx] Ibuprofen [Motrin] 600 mg PO Q4H PRN #0 06/16/19 [Rx] Allergy/AdvReac Type Severity Reaction Status Date / Time No Known Allergies Allergy Verified 06/15/19 08:48 - Meds/Allergy Pre-op Review Medications Reviewed: Yes Allergies Reviewed: Yes Beta Blockers on Current Med List: No Anesthesia Results - Labs 07/04/19 10:19 07/04/19 10:19 - Imaging EKG: report reviewed (ST) Additional studies: C EF 55%, normal coronary Anesthesia Exam Vital Signs/O2 Sat/Glucose, Most Current Temp Pulse Resp BP Pulse Ox 07/04/19 19:25 98.3 F 100 15 143/96 91 Height: 5'8 Weight: 206 lbs NPO (# of Hours): MN Pain Scale: 0 - HEENT Pupil (Motor): Pupils equal, EOMI Mallampati: III Teeth: Normal Oral Opening: Less than or equal to 3 - DIP FILLER LOC: Oriented DIP FILLER Motor: Normal RUE, Normal LUE, Normal RLE, Normal LLE, Normal Face DIP FILLER Sensory: Normal: RUE, LUE, RLE, LLE, Face - Cardiac Rhythm: Regular Murmur: None JVD: No Carotid Bruit: No - Pulmonary Breath Sounds: bilateral Clear Respiratory Effort: Symmetrical Anesthesia Assess/Plan ASA Score: 3 (CAD Tobacco) Level of consciousness: Cooperative, Oriented Anesthetic Plan: General Autologous Blood: No Monitoring Plan: Standard Monitors Recovery Plan: PACU (Discussed GA, agrees to proceed)
[2019-07-04] MEDS ORDERED: *HR* FentaNYL (PF) 100 MCG/2 ML VIAL ONE (22:57)
[2019-07-04] MEDS ORDERED: Ondansetron 4 MG/2 ML VIAL ONE (22:58)
[2019-07-04] MEDS ORDERED: Dexamethasone 4 MG/ML VIAL ONE (22:58)
[2019-07-04] MEDS ORDERED: *HR* Rocuronium Bromide 50 MG/5 ML VIAL ONE (22:58)
[2019-07-04] MEDS ORDERED: *HR* Propofol 200 MG/20 ML VIAL IVP ONE (22:58)
[2019-07-04] MEDS ORDERED: Lidocaine -MPF 2% 2 ML VIAL ONE ×3 (22:58→23:23)
[2019-07-04] MEDS ORDERED: *HR* Succinylcholine 200 MG/10 ML VIAL IVP ONE (22:58)
[2019-07-04] MEDS ORDERED: Acetaminophen IV 1,000 MG/100 ML INFUS..BTL ONE (23:01)
[2019-07-04] MEDS ORDERED: Famotidine 20 MG/2 ML VIAL ONE (23:01)
[2019-07-04] MEDS ORDERED: Lidocaine -MPF 2% 5 ML VIAL ONE (23:30)
[2019-07-05] MEDS ORDERED: *HR* Promethazine 25 MG/ML VIAL IVP PRN ×2 (00:17→02:01)
[2019-07-05] MEDS ORDERED: Ondansetron 4 MG/2 ML VIAL IVP ONE (00:17)
[2019-07-05] MEDS ORDERED: *HR* HYDROmorphone (PF) 1 MG/ML SYRINGE IVP PRN (00:17)
[2019-07-05] MEDS ORDERED: Dexamethasone 4 MG/ML VIAL IVP ONE (00:17)
[2019-07-05] MEDS ORDERED: Neostigmine Methylsulfate 3 MG/3 ML SYRINGE ONE (00:24)
[2019-07-05] MEDS ORDERED: *HR* HYDROMORPHONE 2 MG/ML VIAL ONE (00:39)
--- NOTE | 2019-07-05 01:27 | Operative Note ---
Date of procedure: 07/05/19 Pre-op diagnosis: sigmoid diverticulitis with perforation Post-op diagnosis: same Procedure: 1. Exploratory Laparotomy 2. with Sigmoid Colon Resection and 3. Low Anterior Resection Complications: none Anesthesia: GETA Surgeon: Denisha Arnold Was there an chef's assistant present: Yes Card Hanger: Angelica Smith Estimated blood loss (cc): 25 Specimen: sigmoid colon Condition: stable Disposition: PACU Procedure in Detail: This 48 y/o pt with sigmoid diverticulitis with microperforation is taken to surgery for exploratory laparotomy with sigmoidectomy. Anterior abdominal wall was prepped from the nipples to the pubes and draped in the usual sterile fashion. A midline incision was made 3-4 cm above and 6 cm below the umbilicus. Subcutaneous tissues were dissected using electrocautery. The anterior rectus fascia was divided using electrocautery. The peritoneum was elevated and divided sharply. The intraabdominal cavity was entered. Upon entry of the intraabdominal cavity, transudative abdominal fluid was encountered. Copious amount of non purulent, non feculent ascites was suctioned. A Fowler retractor was placed. The small intestine was run from the ligament of Trietz to the terminal ileum. There was no sign ofobstruction. The large bowel was run and a inflammatory mass was encountered in the sigmoid colon along with edematous and inflammatory changes in the mesentery c/w signs of localized microperforation. The sigmoid colon is resected. The proximal and distal margins are determined. The peritoneal refection is taken down. The distal transection margin is stapled across the distal rectum. The proximal transection margin is stapled across the distal descending colon. The descending colon and sigmoid are mobilized by dividing the white line of Toldt. The sigmoid mesentery is divided with the Enseal device. A decision to make a primary anastomosis due to minimal to no feculent or purulent contamination and complete en bloc resection of the sigmoid colon was possible. A 29 EEA stapling device was used to create the end to end anastomosis. Copious irrigation is carried out. A 10 flat ANGELIKA drain is placed. The Roxana is removed. NGT is checked and is in good position. Sponges are counted and are correct. The incision is closed with #1 looped PDS. Skin is closed with hannah. A ABHISHEK incision vac is placed. Pt tolerated the procedure well. Pt is taken to PACU in good condition.
[2019-07-05] MEDS ORDERED: Albuterol 2.5 MG/3 ML NEBULIZER IH ONE (02:01)
[2019-07-05] MEDS ORDERED: Morphine PCA 30 MG/ 30 ML 30 ML PCA.VIAL IVC PRN ×2 (02:01→14:50)
[2019-07-05] MEDS ORDERED: Metoclopramide 10 MG/2 ML VIAL IVP PRN (02:01)
--- NOTE | 2019-07-05 02:47 | Anesthesia Evaluation Post Op ---
Date of Encounter: 07/05/19 Time of Encounter: 01:35 - Vital Signs Vital Signs: Vital Signs/O2 Sat/Glucose, Most Current Temp Pulse Resp BP Pulse Ox 07/05/19 02:28 95 07/05/19 02:06 97.9 F 100 14 135/89 94 07/05/19 01:50 99 F 91 18 148/89 93 07/05/19 01:40 93 16 142/89 93 07/05/19 01:30 99 F 96 16 143/87 92 07/05/19 01:20 90 16 133/87 92 07/05/19 01:10 90 16 134/91 92 07/05/19 01:00 96.9 F L 86 16 140/86 92 - Lungs Lungs: Clear Ascult./Percussion - Airway Airway: Non-obstructed - Cardiovascular Regular Rate - Mental Status Mental Status: Alert & Oriented, Answers Appropriately - Pain Pain Scale: 2 - Nausea Vomiting Nausea Vomiting: Not Present - Hydration Hydration: Ice chips - Discharge PostOp Status: Transfer Patient to floor
[2019-07-05] MEDS: 0.9 % Sodium Chloride 1,000 ML IVC SCH ×3 (04:23→23:35)
[2019-07-05 04:31] LABS: Hematocrit 49.8 % (37.5-50.1); Hemoglobin 17.4 g/dL (12.9-16.9); Mean Corpuscular HGB Conc 34.9 g/dL (31.6-35.5); Mean Corpuscular Hemoglobin 32.4 pg (28.0-33.3); Mean Corpuscular Volume 92.7 fL (83.0-100.0); Mean Platelet Volume 9.7 fL (9.4-12.4); Platelet Count 279 K/mcL (140-400); Red Blood Count 5.37 M/mcL (4.19-5.50); Red Cell Distribution Width 13.5 % (11.5-14.5); White Blood Count 23.2 K/mcL (4.3-11.1)
[2019-07-05 04:48] LABS: BUN/Creatinine Ratio 16 (6-26); Blood Urea Nitrogen 17 mg/dL (6-20); Calcium 8.6 mg/dL (8.6-10.3); Carbon Dioxide 20 mEq/L (23-29); Chloride 108 mEq/L (98-107); Glucose 168 mg/dL (70-105); Osmolality,Calculated 297 (280-300); Potassium 4.1 mEq/L (3.5-5.1); Sodium 141 mEq/L (136-145); eGFR For African Americans > 60 (> 60); eGFR For Non-African Americans > 60 (> 60)
[2019-07-05 05:30] LABS: Lymphocytes # 0.5 K/mcL (0.6-4.6); Monocytes # 2.3 K/mcL (0.0-1.3); Neutrophils # 20.4 K/mcL (1.6-8.9); Platelet Estimate Normal (Normal)
[2019-07-05] MEDS: Ketorolac 15 MG/ML VIAL IVP SCH ×4 (06:18→23:28)
[2019-07-05] MEDS: Acetaminophen IV 1,000 MG/100 ML INFUS..BTL IVPB SCH ×4 (06:22→23:28)
[2019-07-05] MEDS: Ondansetron 4 MG/2 ML VIAL IVP PRN ×3 (06:42→20:51)
[2019-07-05] MEDS: *HR* Heparin 5,000 UNIT/ML VIAL SQ SCH ×2 (07:00→17:42)
[2019-07-05] MEDS: Piperacillin/Tazobactam 3.375 GM in 0.9 % Sodium Chloride Mini Bag 100 ML IVPB SCH ×3 (07:04→22:03)
[2019-07-05] MEDS ORDERED: 0.9 % Sodium Chloride 1,000 ML IVC ONE (07:45)
--- NOTE | 2019-07-05 08:10 | Acute Care Surgery Event Note ---
Date of Encounter: 07/05/19 Time of Encounter: 08:09 POD zero ex-lap, sigmoid resection, LAR. 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 Patient states he feels much better. 1 L normal saline bolus and continue maintenance fluid for tachycardia. Continue to closely monitor. Ice chips for comfort out of bed to chair today EPCDs incentive spirometry G.I. and DVT prophylaxis
[2019-07-05] MEDS: Pantoprazole 40 MG VIAL IVP SCH (09:03)
[2019-07-05] MEDS: Fluconazole 200 MG/100 ML 200 MG/100 ML BAG IVPB SCH (09:04)
[2019-07-05] MEDS: Saliva Stimulant 100ml BOTTLE PO PRN ×2 (10:21→16:53)
[2019-07-05] MEDS ORDERED: 0.9 % Sodium Chloride 500 ML IVC ONE (14:51)
--- NOTE | 2019-07-05 15:49 | Electrocardiograph Report ---
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
[2019-07-05] MEDS: Morphine PCA 30 MG/ 30 ML 30 ML PCA.VIAL IVC PRN (16:40)
[2019-07-06] MEDS: Morphine PCA 30 MG/ 30 ML 30 ML PCA.VIAL IVC PRN ×3 (03:23→23:41)
[2019-07-06] MEDS: Ondansetron 4 MG/2 ML VIAL IVP PRN ×2 (03:51→10:35)
[2019-07-06] MEDS: Ketorolac 15 MG/ML VIAL IVP SCH ×2 (05:54→12:13)
[2019-07-06] MEDS: Acetaminophen IV 1,000 MG/100 ML INFUS..BTL IVPB SCH ×4 (05:55→23:41)
[2019-07-06] MEDS: Piperacillin/Tazobactam 3.375 GM in 0.9 % Sodium Chloride Mini Bag 100 ML IVPB SCH ×3 (05:55→23:07)
[2019-07-06] MEDS: *HR* Heparin 5,000 UNIT/ML VIAL SQ SCH ×2 (05:56→18:44)
[2019-07-06 06:54] LABS: Hematocrit 51.1 % (37.5-50.1); Hemoglobin 16.5 g/dL (12.9-16.9); Mean Corpuscular HGB Conc 32.3 g/dL (31.6-35.5); Mean Corpuscular Hemoglobin 30.3 pg (28.0-33.3); Mean Corpuscular Volume 93.8 fL (83.0-100.0); Mean Platelet Volume 10.2 fL (9.4-12.4); Platelet Count 216 K/mcL (140-400); Red Blood Count 5.45 M/mcL (4.19-5.50); Red Cell Distribution Width 13.7 % (11.5-14.5)
[2019-07-06 06:58] LABS: White Blood Count 10.8 K/mcL (4.3-11.1)
[2019-07-06] MEDS: 0.9 % Sodium Chloride 1,000 ML IVC SCH ×3 (07:06→23:40)
[2019-07-06 07:12] LABS: Calcium 9.3 mg/dL (8.6-10.3); Potassium 4.3 mEq/L (3.5-5.1)
[2019-07-06 08:10] LABS: Basophils # 0.2 K/mcL (0.0-0.2); Monocytes # 0.5 K/mcL (0.0-1.3); Neutrophils # 6.7 K/mcL (1.6-8.9)
[2019-07-06 08:13] LABS: Toxic Granulation Present (Not Present)
[2019-07-06 08:14] LABS: Platelet Estimate Normal (Normal)
[2019-07-06] MEDS: Pantoprazole 40 MG VIAL IVP SCH (08:21)
[2019-07-06] MEDS: Fluconazole 200 MG/100 ML 200 MG/100 ML BAG IVPB SCH (08:22)
--- NOTE | 2019-07-06 10:36 | AcuteCareSurgery Progress Note ---
<Earline Hopper Juan - Last Filed: 07/06/19 13:08> Date of Encounter: 07/06/19 Time of Encounter: 10:30 - Assessment and Plan (1) Perforation of sigmoid colon due to diverticulitis Current Visit: Yes Status: Acute POD #1 Exploratory Laparotom, Sigmoid Colon Resection and, Low Anterior Resection Pathology pending Continue bowel rest while awaiting return of bowel function- may have ice chips sparingly Continue NG tube while awaiting return of bowel function (1400ml output since midnight) IV fluids IV antibiotics- Continue Zosyn and Diflucan POWERHOUSE ENGINEER pump for pain control Continue ANGELIKA drain Strict I&Os Continue becerra catheter (JULISA) IS every 1 hour while awake GI/DVT prophylaxis Out of bed to chair with assistance, ambulate TID with assistance Repeat am labs- CBC, BMP (2) Acute kidney injury Current Visit: Yes Status: Acute Cr- 1.08>1.54 Continue IV fluids Strict I&Os Continue becerra catheter Avoid nephrotoxic medications Repeat am labs (3) DVT prophylaxis Current Visit: No Status: Acute Heparin 5000 units subcutaneous twice daily for DVT prophylaxis Ambulate hallways 3 times a day with assistance EPCDs to bilateral lower extremities for DVT prophylaxis Subjective Patient reports: no new complaints, feels better, still having pain (expected post-operative pain), flatus (minimal), no bowel movement, nausea, afebrile Objective Vital Signs - Last 8 Hours Temp Pulse Resp BP Pulse Ox 07/06/19 09:00 100 07/06/19 06:47 98.1 F 101 18 127/87 96 07/06/19 04:07 98.3 F 110 17 152/93 95 Intake and Output 07/05/19 07/06/19 07/06/19 23:59 07:59 15:59 Intake Total 1780 / 4270 1300 / 1300 Output Total 1905 / 3200 3230 / 3230 Balance -125 / 1070 -1930 / -1930 Intake: IV Fluids 1700 / 4100 1300 / 1300 0.9 % Sodium Chloride 1,000 ML 1000 / 2000 1000 / 1000 @ 125 mls/hr IVC .Q8H [facility] Rx#: [id number] 0.9 % Sodium Chloride 500 ML @ 500 / 500 1000 mls/hr IVC .Q30M [facility] Rx#: [id number] Ofirmev 1,000 mg/100 ml 1,000 100 / 300 200 / 200 mg In 100 ml @ 400 mls/hr IVPB Q6HR [facility] Rx#:[id number] Zosyn 3.375 GM In 0.9 % Sodium 100 / 200 100 / 100 Chloride (Mini-Bag +) 100 ML @ 25 mls/hr IVPB Q8H [facility] Rx#: [id number] Oral 80 / 170 Output: Gastric Tube Lavage Amount 1900 / 1900 Right Nare 1900 / 1900 Catheter 250 / 975 175 / 175 Urethral (Becerra) 250 / 550 Gastric Drainage 1600 / 1850 1100 / 1100 Wound Drainage 55 / 295 55 / 55 Left Abdomen 55 / 295 55 / 55 Other: Meal npo Percent of Meal Consumed 0% Blood Glucose* 113 115 - General physical appearance well developed, well nourished, moderate pain - Eyes PERRL, normal ocular movement - ENT dry mucosa, atraumatic, normocephalic - Neck Neck exam: trachea midline - Respiratory normal expansion, normal respiratory effort, other (diminished bibasilar bases) - Cardiovascular Cardiovascular exam: Present: tachycardia - Abdomen Abdomen: Present: soft, tender (Expected postoperative tenderness), wound (NG to LIWS with 1400ml of bilious drainage noted since midnight; ANGELIKA drain with serousang. drainage noted (95ml noted since midnight)) - Incision Incision: Present: clean and dry, intact - Genitourinary other (Becerra catheter to straight drain with clear, bright yellow urine) - Neurologic CN 2-12 grossly intact - Psychiatric oriented to time, oriented to person, oriented to place, speech is normal, memory intact - Labs 07/06/19 05:53 07/06/19 05:53 Diabetes panel 07/06/19 Range/Units 05:53 Sodium 143 (136-145) mEq/L Potassium 4.3 (3.5-5.1) mEq/L Chloride 105 (98-107) mEq/L Carbon Dioxide 24 (23-29) mEq/L BUN 33 H (6-20) mg/dL Creatinine 1.54 H (0.70-1.30) mg/dL Glucose 130 H (70-105) mg/dL Calcium 9.3 (8.6-10.3) mg/dL Calcium panel 07/06/19 Range/Units 05:53 Calcium 9.3 (8.6-10.3) mg/dL Pituitary panel 07/06/19 Range/Units 05:53 Sodium 143 (136-145) mEq/L Potassium 4.3 (3.5-5.1) mEq/L Chloride 105 (98-107) mEq/L Carbon Dioxide 24 (23-29) mEq/L BUN 33 H (6-20) mg/dL Creatinine 1.54 H (0.70-1.30) mg/dL Glucose 130 H (70-105) mg/dL Calcium 9.3 (8.6-10.3) mg/dL Adrenal panel 07/06/19 Range/Units 05:53 Sodium 143 (136-145) mEq/L Potassium 4.3 (3.5-5.1) mEq/L Chloride 105 (98-107) mEq/L Carbon Dioxide 24 (23-29) mEq/L BUN 33 H (6-20) mg/dL Creatinine 1.54 H (0.70-1.30) mg/dL Glucose 130 H (70-105) mg/dL Calcium 9.3 (8.6-10.3) mg/dL Consult Discharge Plan - Plan Referrals: Noble Banks DO [Primary Care Provider] - - Attending Attestation For this encounter, I have reviewed the STORE FACILITY TECHNICIAN or PA documentation, treatment plan, and medical decision making; and I have had face to face time with this patient. <Mj Gupta - Last Filed: 07/06/19 20:23> Date of Encounter: 07/06/19 Objective Vital Signs - Last 8 Hours Temp Pulse Resp BP Pulse Ox 07/06/19 19:40 98.2 F 93 16 129/87 94 07/06/19 14:01 98.2 F 83 15 127/81 95 Intake and Output 07/06/19 07/06/19 07/06/19 07:59 15:59 23:59 Intake Total 1300 / 2500 1200 / 2500 Output Total 3230 / 5870 1340 / 5870 1300 / 5870 Balance -1930 / -3370 -140 / -3370 -1300 / -3370 Intake: IV Fluids 1300 / 2500 1200 / 2500 0.9 % Sodium Chloride 1,000 ML 1000 / 2000 1000 / 2000 @ 125 mls/hr IVC .Q8H [facility] Rx#: [id number] Ofirmev 1,000 mg/100 ml 1,000 200 / 300 100 / 300 mg In 100 ml @ 400 mls/hr IVPB Q6HR [facility] Rx#:[id number] Zosyn 3.375 GM In 0.9 % Sodium 100 / 200 100 / 200 Chloride (Mini-Bag +) 100 ML @ 25 mls/hr IVPB Q8H [facility] Rx#: [id number] Oral 0 / 0 Output: Gastric Tube Lavage Amount 1900 / 1900 Right Nare 1900 / 1900 Catheter 175 / 475 300 / 475 Gastric Drainage 1100 / 3400 1000 / 3400 1300 / 3400 Wound Drainage Left Abdomen Other: Meal npo NPO Percent of Meal Consumed 0% Stool Size Small Stool Consistency loose soft Stool Color Brown # Bowel Movements 1 Blood Glucose* 115 95 - Labs 07/06/19 05:53 07/06/19 05:53 Diabetes panel 07/06/19 Range/Units 05:53 Sodium 143 (136-145) mEq/L Potassium 4.3 (3.5-5.1) mEq/L Chloride 105 (98-107) mEq/L Carbon Dioxide 24 (23-29) mEq/L BUN 33 H (6-20) mg/dL Creatinine 1.54 H (0.70-1.30) mg/dL Glucose 130 H (70-105) mg/dL Calcium 9.3 (8.6-10.3) mg/dL Calcium panel 07/06/19 Range/Units 05:53 Calcium 9.3 (8.6-10.3) mg/dL Pituitary panel 07/06/19 Range/Units 05:53 Sodium 143 (136-145) mEq/L Potassium 4.3 (3.5-5.1) mEq/L Chloride 105 (98-107) mEq/L Carbon Dioxide 24 (23-29) mEq/L BUN 33 H (6-20) mg/dL Creatinine 1.54 H (0.70-1.30) mg/dL Glucose 130 H (70-105) mg/dL Calcium 9.3 (8.6-10.3) mg/dL Adrenal panel 07/06/19 Range/Units 05:53 Sodium 143 (136-145) mEq/L Potassium 4.3 (3.5-5.1) mEq/L Chloride 105 (98-107) mEq/L Carbon Dioxide 24 (23-29) mEq/L BUN 33 H (6-20) mg/dL Creatinine 1.54 H (0.70-1.30) mg/dL Glucose 130 H (70-105) mg/dL Calcium 9.3 (8.6-10.3) mg/dL - Attending Attestation patient seen and examined. i have reviewed all labs, imaging, and notes. i agree with the above assessment and plan.
[2019-07-07] MEDS: *HR* Heparin 5,000 UNIT/ML VIAL SQ SCH ×2 (05:06→17:25)
[2019-07-07] MEDS: Piperacillin/Tazobactam 3.375 GM in 0.9 % Sodium Chloride Mini Bag 100 ML IVPB SCH ×3 (05:07→21:59)
[2019-07-07] MEDS: Acetaminophen IV 1,000 MG/100 ML INFUS..BTL IVPB SCH ×4 (05:07→23:03)
[2019-07-07 06:44] LABS: Hematocrit 42.3 % (37.5-50.1); Mean Corpuscular HGB Conc 32.2 g/dL (31.6-35.5); Mean Corpuscular Hemoglobin 30.4 pg (28.0-33.3); Mean Corpuscular Volume 94.6 fL (83.0-100.0); Mean Platelet Volume 9.7 fL (9.4-12.4); Platelet Count 137 K/mcL (140-400); Red Blood Count 4.47 M/mcL (4.19-5.50); Red Cell Distribution Width 13.1 % (11.5-14.5); White Blood Count 11.1 K/mcL (4.3-11.1)
[2019-07-07 07:01] LABS: BUN/Creatinine Ratio 21 (6-26); Blood Urea Nitrogen 20 mg/dL (6-20); Calcium 8.2 mg/dL (8.6-10.3); Carbon Dioxide 28 mEq/L (23-29); Chloride 106 mEq/L (98-107); Glucose 92 mg/dL (70-105); Osmolality,Calculated 294 (280-300); Potassium 3.9 mEq/L (3.5-5.1); Sodium 141 mEq/L (136-145); eGFR For African Americans > 60 (> 60); eGFR For Non-African Americans > 60 (> 60)
[2019-07-07 07:05] LABS: Hemoglobin 13.6 g/dL (12.9-16.9)
[2019-07-07] MEDS: Fluconazole 200 MG/100 ML 200 MG/100 ML BAG IVPB SCH (07:58)
[2019-07-07] MEDS: Pantoprazole 40 MG VIAL IVP SCH (07:59)
[2019-07-07] MEDS: 0.9 % Sodium Chloride 1,000 ML IVC SCH (07:59)
[2019-07-07 08:52] LABS: Eosinophils # 0.2 K/mcL (0.0-0.6); Lymphocytes # 2.9 K/mcL (0.6-4.6); Monocytes # 0.4 K/mcL (0.0-1.3); Neutrophils # 7.4 K/mcL (1.6-8.9)
[2019-07-07 08:53] LABS: Platelet Estimate Normal (Normal); Toxic Granulation Present (Not Present)
--- NOTE | 2019-07-07 12:23 | AcuteCareSurgery Progress Note ---
Date of Encounter: 07/07/19 Time of Encounter: 08:00 - Assessment and Plan (1) Perforation of sigmoid colon due to diverticulitis Current Visit: Yes Status: Acute POD#3 ex lap with sigmoidectomy. DC NGT. DC becerra. Ambulate. Start clears. DC CARE ANALYST and MIV. PO pain meds. Subjective Patient reports: no new complaints, feels better, pain is less, flatus, bowel movement, afebrile Narrative: NPO Objective Vital Signs - Last 8 Hours Temp Pulse Resp BP Pulse Ox 07/07/19 10:36 97.9 F 97 12 135/99 95 07/07/19 07:26 97.6 F 99 17 135/87 97 Intake and Output 07/06/19 07/07/19 07/07/19 23:59 07:59 15:59 Intake Total 1200 / 3800 1200 / 1200 Output Total 1875 / 6445 2110 / 2480 370 / 2480 Balance -675 / -2645 -910 / -1280 -370 / -1280 Intake: IV Fluids 1200 / 3800 1200 / 1200 0.9 % Sodium Chloride 1,000 ML 1000 / 3000 1000 / 1000 @ 125 mls/hr IVC .Q8H [facility] Rx#: [id number] Ofirmev 1,000 mg/100 ml 1,000 100 / 400 100 / 100 mg In 100 ml @ 400 mls/hr IVPB Q6HR [facility] Rx#:[id number] Zosyn 3.375 GM In 0.9 % Sodium 100 / 300 100 / 100 Chloride (Mini-Bag +) 100 ML @ 25 mls/hr IVPB Q8H [facility] Rx#: [id number] Oral 0 / 0 Output: Catheter 550 / 1025 1250 / 1600 350 / 1600 Gastric Drainage 1300 / 3400 800 / 800 Wound Drainage 25 / 120 60 / 80 20 / 80 Left Abdomen 25 / 120 60 / 80 20 / 80 Other: Meal NPO npo Stool Size Small Stool Consistency loose soft Stool Color Brown # Bowel Movements 1 Blood Glucose* 79 - General physical appearance no distress, moderate pain (as expected post-op) - Eyes PERRL, normal ocular movement - ENT normal mucosa, no congestion - Neck Neck exam: trachea midline, no venous distension - Respiratory normal respiratory effort, clear to auscultation - Cardiovascular Cardiovascular exam: Present: RRR. Absent: JVD - Abdomen Abdomen: Present: bowel sounds present, soft, tender (as expected post-op). Absent: distended - Incision Incision: Present: clean and dry (ABHISHEK in place), intact - Genitourinary normal penis with no external lesions - Neurologic CN 2-12 grossly intact, normal coordination - Musculoskeletal normal posture - Psychiatric oriented to time, oriented to person, oriented to place - Labs 07/07/19 06:18 07/07/19 06:18 Diabetes panel 07/07/19 Range/Units 06:18 Sodium 141 (136-145) mEq/L Potassium 3.9 (3.5-5.1) mEq/L Chloride 106 (98-107) mEq/L Carbon Dioxide 28 (23-29) mEq/L BUN 20 (6-20) mg/dL Creatinine 0.97 (0.70-1.30) mg/dL Glucose 92 (70-105) mg/dL Calcium 8.2 L (8.6-10.3) mg/dL Calcium panel 07/07/19 Range/Units 06:18 Calcium 8.2 L (8.6-10.3) mg/dL Pituitary panel 07/07/19 Range/Units 06:18 Sodium 141 (136-145) mEq/L Potassium 3.9 (3.5-5.1) mEq/L Chloride 106 (98-107) mEq/L Carbon Dioxide 28 (23-29) mEq/L BUN 20 (6-20) mg/dL Creatinine 0.97 (0.70-1.30) mg/dL Glucose 92 (70-105) mg/dL Calcium 8.2 L (8.6-10.3) mg/dL Adrenal panel 07/07/19 Range/Units 06:18 Sodium 141 (136-145) mEq/L Potassium 3.9 (3.5-5.1) mEq/L Chloride 106 (98-107) mEq/L Carbon Dioxide 28 (23-29) mEq/L BUN 20 (6-20) mg/dL Creatinine 0.97 (0.70-1.30) mg/dL Glucose 92 (70-105) mg/dL Calcium 8.2 L (8.6-10.3) mg/dL Consult Discharge Plan - Plan Referrals: Noble Banks DO [Primary Care Provider] -
[2019-07-07] MEDS: *HR* OxyCODONE/APAP 5/325 TABLET PO PRN ×2 (15:45→20:06)
[2019-07-07] MEDS: Ondansetron 4 MG/2 ML VIAL IVP PRN (18:40)
[2019-07-08] MEDS: Acetaminophen IV 1,000 MG/100 ML INFUS..BTL IVPB SCH ×3 (05:18→18:20)
[2019-07-08] MEDS: Piperacillin/Tazobactam 3.375 GM in 0.9 % Sodium Chloride Mini Bag 100 ML IVPB SCH ×4 (05:19→22:51)
[2019-07-08] MEDS: *HR* Heparin 5,000 UNIT/ML VIAL SQ SCH ×2 (05:19→18:20)
[2019-07-08] MEDS: *HR* OxyCODONE/APAP 5/325 TABLET PO PRN ×3 (07:58→21:28)
[2019-07-08] MEDS: Ondansetron 4 MG/2 ML VIAL IVP PRN ×3 (08:18→22:37)
--- NOTE | 2019-07-08 09:13 | AcuteCareSurgery Progress Note ---
Date of Encounter: 07/08/19 Time of Encounter: 08:37 - Assessment and Plan (1) Perforation of sigmoid colon due to diverticulitis Current Visit: Yes Status: Acute s/p Sigmoid diverticulitis with anastamosis POD#4. Will advance to full liquids. OOB and ambulation. Continue with current antibiotics. Subjective Patient reports: other (Patient denies any nausea or vomiting. Tolerating clears. ) Objective Vital Signs - Last 8 Hours Temp Pulse Resp BP Pulse Ox 07/08/19 06:37 98.4 F 94 13 146/82 94 07/08/19 03:25 98.3 F 89 14 131/81 94 07/08/19 01:05 98 Intake and Output 07/07/19 07/08/19 07/08/19 23:59 07:59 15:59 Intake Total 400 / 2900 100 / 100 Output Total 360 / 3090 355 / 355 Balance 40 / -190 -255 / -255 Intake: IV Fluids 400 / 2900 100 / 100 Ofirmev 1,000 mg/100 ml 1,000 200 / 500 mg In 100 ml @ 400 mls/hr IVPB Q6HR [facility] Rx#:[id number] Diflucan Premix 200 MG/100 ML 100 / 100 200 mg In 100 ml @ 100 mls/hr IVPB DAILY [facility] Rx#:[id number] Zosyn 3.375 GM In 0.9 % Sodium 100 / 300 100 / 100 Chloride (Mini-Bag +) 100 ML @ 25 mls/hr IVPB Q8H [facility] Rx#: [id number] Oral 0 / 0 0 / 0 Output: Urine 0 / 250 225 / 225 Wound Drainage 360 / 440 130 / 130 Left Abdomen 360 / 440 130 / 130 Other: Stool Size Large Small Stool Consistency loose loose Stool Color Brown Brown # Bowel Movements 1 - General physical appearance well nourished, no distress - Abdomen Abdomen: Present: soft, tender (Mild incisional tenderness. Dressing in place) - Labs 07/07/19 06:18 07/07/19 06:18 Consult Discharge Plan - Plan Referrals: Noble Banks DO [Primary Care Provider] -
[2019-07-08] MEDS: Fluconazole 200 MG/100 ML 200 MG/100 ML BAG IVPB SCH (10:16)
[2019-07-08] MEDS: Pantoprazole 40 MG VIAL IVP SCH (10:16)
[2019-07-09] MEDS: Acetaminophen IV 1,000 MG/100 ML INFUS..BTL IVPB SCH ×5 (00:30→23:23)
[2019-07-09 02:13] LABS: Basophils # 0.1 K/mcL (0.0-0.2); Basophils % 0.5 %; Eosinophils # 0.2 K/mcL (0.0-0.6); Eosinophils % 1.9 %; Hematocrit 42.9 % (37.5-50.1); Immature Granulocytes % 0.8 % (0-4); Lymphocytes # 3.2 K/mcL (0.6-4.6); Lymphocytes % 29.7 %; Mean Corpuscular HGB Conc 32.6 g/dL (31.6-35.5); Mean Corpuscular Hemoglobin 29.6 pg (28.0-33.3); Mean Corpuscular Volume 90.7 fL (83.0-100.0); Mean Platelet Volume 10.3 fL (9.4-12.4); Monocytes % 8.8 %; Neutrophils # 6.4 K/mcL (1.6-8.9); Platelet Count 161 K/mcL (140-400); Red Blood Count 4.73 M/mcL (4.19-5.50); Red Cell Distribution Width 12.4 % (11.5-14.5); Segmented Neutrophils % 58.3 %; White Blood Count 10.9 K/mcL (4.3-11.1)
[2019-07-09 02:35] LABS: BUN/Creatinine Ratio 11 (6-26); Blood Urea Nitrogen 8 mg/dL (6-20); Calcium 8.1 mg/dL (8.6-10.3); Carbon Dioxide 25 mEq/L (23-29); Chloride 101 mEq/L (98-107); Glucose 102 mg/dL (70-105); Osmolality,Calculated 283 (280-300); Potassium 3.2 mEq/L (3.5-5.1); Sodium 137 mEq/L (136-145); eGFR For African Americans > 60 (> 60); eGFR For Non-African Americans > 60 (> 60)
[2019-07-09] MEDS: *HR* Heparin 5,000 UNIT/ML VIAL SQ SCH ×2 (06:00→17:30)
[2019-07-09] MEDS: Piperacillin/Tazobactam 3.375 GM in 0.9 % Sodium Chloride Mini Bag 100 ML IVPB SCH ×3 (06:02→20:30)
[2019-07-09] MEDS: Pantoprazole 40 MG VIAL IVP SCH (08:22)
[2019-07-09] MEDS: Fluconazole 200 MG/100 ML 200 MG/100 ML BAG IVPB SCH (08:22)
[2019-07-09] MEDS: Ondansetron 4 MG/2 ML VIAL IVP PRN ×2 (08:22→20:46)
[2019-07-09] MEDS: *HR* OxyCODONE/APAP 5/325 TABLET PO PRN ×2 (08:23→20:46)
--- NOTE | 2019-07-09 09:56 | AcuteCareSurgery Progress Note ---
Date of Encounter: 07/09/19 Time of Encounter: 09:54 - Assessment and Plan (1) Perforation of sigmoid colon due to diverticulitis Current Visit: Yes Status: Acute s/p Sigmoid diverticulitis with anastamosis POD#5. Patient continues to improve. Will advance to regular diet and continue with IV antibiotics. If he continues to do well over the next 24 hours then will consider discharge home tomorrow. Subjective Patient reports: other (Lower abdominal pain, improving. Passing flatus. No nausea (has had nausea if his pain is not managed with pain meds).) Objective Vital Signs - Last 8 Hours Temp Pulse Resp BP Pulse Ox 07/09/19 07:41 97.8 F 81 15 136/83 95 07/09/19 02:48 98.1 F 76 16 114/72 96 Intake and Output 07/08/19 07/09/19 07/09/19 23:59 07:59 15:59 Intake Total 320 / 820 200 / 660 460 / 660 Output Total 770 / 1400 150 / 150 Balance -450 / -580 50 / 510 460 / 510 Intake: IV Fluids 200 / 700 200 / 300 100 / 300 Ofirmev 1,000 mg/100 ml 1,000 100 / 300 100 / 200 100 / 200 mg In 100 ml @ 400 mls/hr IVPB Q6HR [facility] Rx#:[id number] Zosyn 3.375 GM In 0.9 % Sodium 100 / 300 100 / 100 Chloride (Mini-Bag +) 100 ML @ 25 mls/hr IVPB Q8H [facility] Rx#: [id number] Oral 120 / 120 360 / 360 Output: Urine 575 / 800 Wound Drainage 195 / 600 150 / 150 Left Abdomen 195 / 600 150 / 150 Other: Meal Dinner Breakfast Percent of Meal Consumed 10% 100% Stool Size Moderate Stool Consistency liquid Stool Color Green Weight 88.1 kg Patient Weight 07/09/19 23:59 Weight 88.1 kg - General physical appearance well nourished, no distress - Abdomen Abdomen: Present: bowel sounds present, soft, tender (Mild midline and lower abdominal pain. Dressing intact.) - Labs 07/09/19 01:29 07/09/19 01:29 Diabetes panel 07/09/19 Range/Units 01:29 Sodium 137 (136-145) mEq/L Potassium 3.2 L (3.5-5.1) mEq/L Chloride 101 (98-107) mEq/L Carbon Dioxide 25 (23-29) mEq/L BUN 8 (6-20) mg/dL Creatinine 0.75 (0.70-1.30) mg/dL Glucose 102 (70-105) mg/dL Calcium 8.1 L (8.6-10.3) mg/dL Calcium panel 07/09/19 Range/Units 01:29 Calcium 8.1 L (8.6-10.3) mg/dL Pituitary panel 07/09/19 Range/Units 01:29 Sodium 137 (136-145) mEq/L Potassium 3.2 L (3.5-5.1) mEq/L Chloride 101 (98-107) mEq/L Carbon Dioxide 25 (23-29) mEq/L BUN 8 (6-20) mg/dL Creatinine 0.75 (0.70-1.30) mg/dL Glucose 102 (70-105) mg/dL Calcium 8.1 L (8.6-10.3) mg/dL Adrenal panel 07/09/19 Range/Units 01:29 Sodium 137 (136-145) mEq/L Potassium 3.2 L (3.5-5.1) mEq/L Chloride 101 (98-107) mEq/L Carbon Dioxide 25 (23-29) mEq/L BUN 8 (6-20) mg/dL Creatinine 0.75 (0.70-1.30) mg/dL Glucose 102 (70-105) mg/dL Calcium 8.1 L (8.6-10.3) mg/dL Consult Discharge Plan - Plan Referrals: Noble Banks DO [Primary Care Provider] -
[2019-07-09] MEDS ORDERED: Ketorolac 30 MG/ML VIAL IM PRN (22:07)
[2019-07-09] MEDS: Ketorolac 30 MG/ML VIAL IVP SCH (23:10)
[2019-07-10 04:31] LABS: BUN/Creatinine Ratio 13 (6-26); Blood Urea Nitrogen 10 mg/dL (6-20); Calcium 8.1 mg/dL (8.6-10.3); Carbon Dioxide 24 mEq/L (23-29); Chloride 106 mEq/L (98-107); Glucose 106 mg/dL (70-105); Osmolality,Calculated 285 (280-300); Potassium 3.8 mEq/L (3.5-5.1); Sodium 138 mEq/L (136-145); eGFR For African Americans > 60 (> 60); eGFR For Non-African Americans > 60 (> 60)
[2019-07-10] MEDS: Piperacillin/Tazobactam 3.375 GM in 0.9 % Sodium Chloride Mini Bag 100 ML IVPB SCH (05:20)
[2019-07-10] MEDS: *HR* Heparin 5,000 UNIT/ML VIAL SQ SCH (05:21)
[2019-07-10] MEDS: Acetaminophen IV 1,000 MG/100 ML INFUS..BTL IVPB SCH (05:22)
[2019-07-10] MEDS: Ketorolac 30 MG/ML VIAL IVP SCH (05:23)
[2019-07-10] MEDS: Pantoprazole 40 MG VIAL IVP SCH (07:47)
[2019-07-10] MEDS: Fluconazole 200 MG/100 ML 200 MG/100 ML BAG IVPB SCH (07:47)
[2019-07-10] MEDS: *HR* OxyCODONE/APAP 5/325 TABLET PO PRN (08:08)
--- NOTE | 2019-07-10 10:40 | Discharge Summary ---
Date of Encounter: 07/10/19 Time of Encounter: 10:37 - Discharge Diagnosis (1) Perforation of sigmoid colon due to diverticulitis Priority: Primary Status: Acute General Surgery Exam Initial Vital Signs Temp Pulse Resp BP Pulse Ox 98.0 F 118 16 147/91 97 07/04/19 10:11 07/04/19 10:11 07/04/19 10:11 07/04/19 10:11 07/04/19 10:11 - Eyes PERRL, normal ocular movement - Abdomen Abdomen general surgery: Present: bowel sounds present, soft, tender (Mild incisional pain. No erythema or edema) - Hospital Course Hospital course: Mr. Singh is a 48 year old male with a past mental history significant for coronary artery disease, myocardial infarction who presented to [facility] secondary to perforated sigmoid diverticulitis. He underwent a sigmoid resection with primary anastomosis on 07/05/2019. His postoperative recovery was notable for mild hypokalemia that was replaced without difficulty. He was slowly able to tolerate out of bed to chair and tolerated diet advancement from clears to full liquids and eventually to solid foods. He was continued on IV antibiotics and by postoperative day 6 because of his overall improvement with his regular diet the decision was made to transect for his IV meds to by mouth meds and to discharge him home with instructions to follow-up with [facility] in 1-2 weeks. He had an intraoperative placed ANGELIKA drain which will be managed by him and his as an outpatient. Time spent discussing smoking cessation with patient: 3 to 10 minutes - Time Spent with Patient Total time spent providing and/or coordinating discharge services: Less than 30 minutes - Discharge Medications Prescriptions: New Amoxicillin/Clavulanate [Augmentin] 875 mg PO BIDWM 7 Days #14 tablet Fluconazole [Diflucan] 100 mg PO DAILY 7 Days #7 tablet OxyCODONE/APAP 5/325 [Percocet 5/325 MG] 1 each PO Q6HR PRN 7 Days #28 tablet PRN Reason: Pain No Action Phenylephrine HCl [Sudafed PE] 10 mg PO Q6H Ranitidine HCl [Acid Radio Installer] 75 mg PO TID Ibuprofen [Motrin] 600 mg PO Q4H PRN #0 PRN Reason: Mild To Moderate Pain Acetaminophen [Tylenol] 500 mg PO Q4H PRN #0 PRN Reason: Mild To Moderate Pain Home Medications: Phenylephrine HCl [Sudafed PE] 10 mg PO Q6H 06/14/19 [History] Ranitidine HCl [Acid Radio Installer] 75 mg PO TID 06/14/19 [History] Acetaminophen [Tylenol] 500 mg PO Q4H PRN #0 06/16/19 [Rx] Ibuprofen [Motrin] 600 mg PO Q4H PRN #0 06/16/19 [Rx] Amoxicillin/Clavulanate [Augmentin] 875 mg PO BIDWM 7 Days #14 tablet 07/10/19 [Rx] Fluconazole [Diflucan] 100 mg PO DAILY 7 Days #7 tablet 07/10/19 [Rx] OxyCODONE/APAP 5/325 [Percocet 5/325 MG] 1 each PO Q6HR PRN 7 Days #28 tablet 07/10/19 [Rx] Allergies/Adverse Reactions: Allergy/AdvReac Type Severity Reaction Status Date / Time No Known Allergies Allergy Verified 06/15/19 08:48 Date of admission: 07/04/19 16:29 Primary care physician: Noble Banks DO Discharging clinician: Dominic Gomez Anticipated date of discharge: 07/10/19 Labs on day of discharge: Labs from last 24 hours 07/10/19 03:59 Sodium 138 Potassium 3.8 Chloride 106 Carbon Dioxide 24 BUN 10 Creatinine 0.79 Est GFR ( Amer) > 60 Est GFR (Non-Af Amer) > 60 BUN/Creatinine Ratio 13 Glucose 106 H Calculated Osmolality 285 Calcium 8.1 L - Impressions ITS Impressions Abdomen/Pelvis CT 07/04/19 11:54 IMPRESSION: Persistent findings of sigmoid diverticulitis with adjacent extraluminal air, in keeping with micro perforation. Findings are suggestive of small bowel obstruction with multiple dilated fluid-filled loops of small bowel throughout the abdomen and pelvis. Decompressed distal ileum is thick walled, which can reflect ileitis. 3 mm calculus at the right UVJ, new as compared to prior, without significant hydronephrosis. Additional bilateral nonobstructing nephrolithiasis. Ascites. D/ / Clement Alves MD / Clement Alves MD Interpreting Provider: Clement Alves MD - Patient Status Disposition: Home, Self-Care Condition: Good Overall status at discharge: patient is progressing back to baseline - Discharge Instructions Follow Up With: Noble Banks DO [Primary Care Provider] - Additional Instructions: No heavy lifting greater than 15lbs for 5 additional weeks. May shower daily. Record ANGELIKA bulb drainage amount and make certain to bring the diary of the drainage with you to your appointment. The surgery office will contact you early this week for a follow up time and date. - Diet and Activity Diet: advance to your usual diet
[2019-07-10 11:03] VITALS: BP 132/78
== END 2019-07-10 13:36 | disposition home or self-care (01) | DRG 330 ==
LOC: 3ANU 09:59 → EMEROOARM 09:59 → 3ANU 14:05
PROVIDERS: ADMIT Surgery; ATTEND Surgery

== ENCOUNTER 2020-02-04 05:31 | Inpatient (IN) ==
[2020-02-04] MEDS ORDERED: *HR* HYDROmorphone (PF) 1 MG/ML SYRINGE IVP ONE ×2 (05:38→06:51)
[2020-02-04] MEDS ORDERED: 0.9 % Sodium Chloride 1,000 ML IVC ONE (05:38)
[2020-02-04] MEDS ORDERED: Ondansetron 4 MG/2 ML VIAL IVP ONE (05:38)
[2020-02-04 05:59] LABS: Basophils % 0.3 %; Eosinophils % 0.2 %; Red Cell Distribution Width 13.2 % (11.5-14.5); Segmented Neutrophils % 89.9 %
[2020-02-04 06:01] LABS: Basophils # 0.1 K/mcL (0.0-0.2); Eosinophils # 0.1 K/mcL (0.0-0.6); Hematocrit 53.6 % (37.5-50.1); Hemoglobin 18.7 g/dL (12.9-16.9); Immature Granulocytes % 0.7 % (0-4); Lymphocytes # 1.5 K/mcL (0.6-4.6); Mean Corpuscular HGB Conc 34.9 g/dL (31.6-35.5); Mean Corpuscular Hemoglobin 31.4 pg (28.0-33.3); Mean Corpuscular Volume 90.1 fL (83.0-100.0); Mean Platelet Volume 9.4 fL (9.4-12.4); Monocytes # 1.1 K/mcL (0.0-1.3); Monocytes % 3.9 %; Platelet Count 385 K/mcL (140-400); Red Blood Count 5.95 M/mcL (4.19-5.50); White Blood Count 28.9 K/mcL (4.3-11.1)
[2020-02-04 06:27] LABS: Alanine Aminotransferase 16 Units/L (7-52); Albumin 5.2 g/dL (3.5-5.7); Albumin/Globulin Ratio 1.4 (1.1-2.2); Alkaline Phosphatase 122 Units/L (34-104); Aspartate Amino Transferase 13 Units/L (13-39); BUN/Creatinine Ratio 18 (6-26); Bilirubin,Total 0.4 mg/dL (0.3-1.0); Blood Urea Nitrogen 19 mg/dL (6-20); Calcium 10.8 mg/dL (8.6-10.3); Carbon Dioxide 21 mEq/L (23-29); Chloride 104 mEq/L (98-107); Globulin 3.7 g/dL (2.4-3.5); Glucose 176 mg/dL (70-105); Lipase 20 Units/L (11-82); Osmolality,Calculated 291 (280-300); Potassium 4.2 mEq/L (3.5-5.1); Sodium 137 mEq/L (136-145); Total Protein 8.9 g/dL (6.4-8.9); Troponin I < 0.03 ng/mL (< 0.04); eGFR For African Americans > 60 (> 60); eGFR For Non-African Americans > 60 (> 60)
[2020-02-04 06:31] LABS: Platelet Estimate Normal (Normal)
[2020-02-04 07:17] LABS: Bilirubin,Urine Small (Negative); Blood,Urine Negative (Negative); Clarity,Urine Clear (Clear); Color,Urine Dark Yellow (Yellow); Glucose,Urine (UA) Normal (Normal); Ketones,Urine Negative (Negative); Leukocyte Esterase,Urine Negative (Negative); Nitrite,Urine Negative (Negative); PH,Urine 5.5 pH Units (5.0-8.0); Protein,Urine Trace mg/dL (Neg-Trace); Specific Gravity,Urine 1.028 (1.010-1.025); Urobilinogen,Urine Normal (Normal)
[2020-02-04] MEDS ORDERED: Naloxone 0.4 MG/ML INJ IVP PRN (07:18)
[2020-02-04] MEDS ORDERED: Ondansetron 4 MG/2 ML VIAL IVP PRN (07:18)
[2020-02-04] MEDS ORDERED: *HR* Dextrose 50 % in Water (Syg) 50 ML SYRINGE IVP PRN (07:23)
[2020-02-04] MEDS ORDERED: Dextrose Gel 15 GM/37.5 ML TUBE PO PRN ×2 (07:23)
[2020-02-04] MEDS ORDERED: D5% in Water 1,000 ML IVC PRN (07:23)
[2020-02-04] MEDS ORDERED: *HR* Labetalol 20 MG/4 ML SYRINGE IVP PRN (07:28)
[2020-02-04] MEDS ORDERED: D5% in Lactated Ringers 1,000 ML IVC SCH (07:30)
[2020-02-04] MEDS ORDERED: Ringers Solution, Lactated 1,000 ML IVC SCH (08:15)
[2020-02-04] MEDS: Piperacillin/Tazobactam 3.375 GM in 0.9 % Sodium Chloride Mini Bag 100 ML IVPB SCH ×2 (08:44→16:47)
[2020-02-04 08:45] LABS: INR 0.9; Prothrombin Time 9.9 Seconds (9.4-12.1)
[2020-02-04] MEDS: Pantoprazole 40 MG VIAL IVP SCH ×2 (08:46→17:01)
[2020-02-04 08:48] LABS: Activated Partial Thrombo Time 30.7 Seconds (26.0-36.0)
[2020-02-04] MEDS: *HR* HYDROmorphone (PF) 1 MG/ML SYRINGE IVP PRN ×2 (09:18→16:47)
[2020-02-04] MEDS: *HR* Heparin 5,000 UNIT/ML VIAL SQ SCH ×2 (13:48→22:41)
[2020-02-04] MEDS: Insulin LISPRO 300 UNITS/3 ML VIAL SQ SCH ×2 (13:49→19:35)
[2020-02-04] MEDS: Ringers Solution, Lactated 1,000 ML IVC SCH ×2 (19:59→20:00)
[2020-02-04 21:09] LABS: Magnesium 1.6 mg/dL (1.6-2.6)
[2020-02-05] MEDS: Piperacillin/Tazobactam 3.375 GM in 0.9 % Sodium Chloride Mini Bag 100 ML IVPB SCH ×3 (00:36→15:11)
[2020-02-05] MEDS: Insulin LISPRO 300 UNITS/3 ML VIAL SQ SCH ×3 (00:37→12:30)
[2020-02-05 00:42] LABS: Adenovirus F 40/41 PCR Not detected (Not detect); Astrovirus PCR Not detected (Not detect); C.difficile Toxin A/B Gene PCR Not detected (Not detect); Campylobacter by PCR Not detected (Not detect); Cryptosporidium by PCR Not detected (Not detect); Cyclospora cayetanensis PCR Not detected (Not detect); E. coli O157 by PCR Not detected (Not detect); Entamoeba histolytica PCR Not detected (Not detect); Enteroaggregative E.coli(EAEC) Not detected (Not detect); Enteropathogenic E.coli(EPEC) DETECTED (Not detect); Enterotoxigenic E.coli (ETEC) Not detected (Not detect); Giardia lamblia PCR Not detected (Not detect); Norovirus GI/GII PCR Not detected (Not detect); Plesiomonas shigelloides PCR Not detected (Not detect); Rotavirus A PCR Not detected (Not detect); Salmonella PCR Not detected (Not detect); Sapovirus PCR Not detected (Not detect); Shig/EnteroinvasiveE coli EIEC Not detected (Not detect); Shigalike tox-prod E coli STEC Not detected (Not detect); Vibrio PCR Not detected (Not detect); Vibrio cholerae PCR Not detected (Not detect); Yersinia enterocolitica PCR Not detected (Not detect)
[2020-02-05] MEDS: Pantoprazole 40 MG VIAL IVP SCH (06:02)
[2020-02-05] MEDS: *HR* Heparin 5,000 UNIT/ML VIAL SQ SCH ×3 (06:02→22:28)
[2020-02-05 06:56] LABS: Basophils # 0.1 K/mcL (0.0-0.2); Basophils % 0.4 %; Eosinophils # 0.1 K/mcL (0.0-0.6); Eosinophils % 0.3 %; Hematocrit 50.4 % (37.5-50.1); Immature Granulocytes % 0.5 % (0-4); Lymphocytes # 2.5 K/mcL (0.6-4.6); Lymphocytes % 15.8 %; Mean Corpuscular HGB Conc 33.5 g/dL (31.6-35.5); Mean Corpuscular Volume 92.3 fL (83.0-100.0); Mean Platelet Volume 9.5 fL (9.4-12.4); Monocytes # 1.7 K/mcL (0.0-1.3); Neutrophils # 11.2 K/mcL (1.6-8.9); Platelet Count 337 K/mcL (140-400); Red Blood Count 5.46 M/mcL (4.19-5.50); Red Cell Distribution Width 13.9 % (11.5-14.5); White Blood Count 15.6 K/mcL (4.3-11.1)
[2020-02-05 06:58] LABS: Hemoglobin 16.9 g/dL (12.9-16.9)
[2020-02-05 07:13] LABS: BUN/Creatinine Ratio 26 (6-26); Blood Urea Nitrogen 36 mg/dL (6-20); Calcium 9.2 mg/dL (8.6-10.3); Carbon Dioxide 21 mEq/L (23-29); Chloride 108 mEq/L (98-107); Glucose 145 mg/dL (70-105); Magnesium 1.7 mg/dL (1.6-2.6); Osmolality,Calculated 299 (280-300); Phosphorous 4.2 mg/dL (2.7-4.5); Potassium 3.9 mEq/L (3.5-5.1); Sodium 139 mEq/L (136-145); eGFR For African Americans > 60 (> 60); eGFR For Non-African Americans 54 (> 60)
[2020-02-05] MEDS ORDERED: Ringers Solution, Lactated 1,000 ML IVC ONE (07:24)
[2020-02-05] MEDS: Ringers Solution, Lactated 1,000 ML IVC SCH ×3 (08:36→18:23)
[2020-02-05] MEDS ORDERED: Chloraseptic Spray 177 ML BOTTLE MM PRN (08:57)
[2020-02-06] MEDS: Piperacillin/Tazobactam 3.375 GM in 0.9 % Sodium Chloride Mini Bag 100 ML IVPB SCH (00:18)
[2020-02-06] MEDS: *HR* Heparin 5,000 UNIT/ML VIAL SQ SCH (04:06)
[2020-02-06 07:46] LABS: Hematocrit 42.8 % (37.5-50.1); Mean Corpuscular HGB Conc 33.4 g/dL (31.6-35.5); Mean Corpuscular Hemoglobin 30.8 pg (28.0-33.3); Mean Corpuscular Volume 92.2 fL (83.0-100.0); Mean Platelet Volume 9.3 fL (9.4-12.4); Platelet Count 208 K/mcL (140-400); Red Blood Count 4.64 M/mcL (4.19-5.50); Red Cell Distribution Width 13.2 % (11.5-14.5); White Blood Count 11.8 K/mcL (4.3-11.1)
[2020-02-06 07:54] VITALS: BP 129/82
[2020-02-06 07:55] LABS: Hemoglobin 14.3 g/dL (12.9-16.9)
[2020-02-06 08:12] LABS: BUN/Creatinine Ratio 17 (6-26); Blood Urea Nitrogen 18 mg/dL (6-20); Calcium 8.7 mg/dL (8.6-10.3); Carbon Dioxide 27 mEq/L (23-29); Chloride 107 mEq/L (98-107); Glucose 125 mg/dL (70-105); Osmolality,Calculated 293 (280-300); Potassium 3.6 mEq/L (3.5-5.1); Sodium 140 mEq/L (136-145); eGFR For African Americans > 60 (> 60); eGFR For Non-African Americans > 60 (> 60)
[2020-02-06 08:15] LABS: Estimated Average Glucose 117 mg/dl
== END 2020-02-06 11:13 | disposition home or self-care (01) | DRG 872 ==
LOC: EMEROOARM 05:31 → 3ANU 05:31 → SUATTDRO 07:17 → 3ANU 08:05
PROVIDERS: ADMIT Internal Medicine; ATTEND Internal Medicine

== ENCOUNTER 2020-07-22 19:16 | Inpatient (IN) ==
[2020-07-22] MEDS ORDERED: Ondansetron 4 MG/2 ML VIAL IVP ONE ×2 (20:35→22:43)
[2020-07-22] MEDS ORDERED: 0.9 % Sodium Chloride 1,000 ML IVC ONE (20:35)
[2020-07-22] MEDS ORDERED: *HR* FentaNYL (PF) 100 MCG/2 ML VIAL IVP ONE (20:35)
[2020-07-22] MEDS ORDERED: Isovue-370 500 ML BOTTLE IVP ONE (20:36)
[2020-07-22 20:53] LABS: Basophils # 0.1 K/mcL (0.0-0.2); Basophils % 0.4 %; Eosinophils # 0.2 K/mcL (0.0-0.6); Eosinophils % 0.7 %; Hematocrit 46.5 % (37.5-50.1); Hemoglobin 16.3 g/dL (12.9-16.9); Immature Granulocytes % 0.3 % (0-4); Lymphocytes # 2.5 K/mcL (0.6-4.6); Lymphocytes % 12.2 %; Mean Corpuscular HGB Conc 35.1 g/dL (31.6-35.5); Mean Corpuscular Hemoglobin 32.2 pg (28.0-33.3); Mean Corpuscular Volume 91.9 fL (83.0-100.0); Mean Platelet Volume 8.9 fL (9.4-12.4); Monocytes # 0.9 K/mcL (0.0-1.3); Monocytes % 4.4 %; Neutrophils # 17.1 K/mcL (1.6-8.9); Platelet Count 363 K/mcL (140-400); Red Blood Count 5.06 M/mcL (4.19-5.50); Red Cell Distribution Width 12.6 % (11.5-14.5); White Blood Count 20.8 K/mcL (4.3-11.1)
[2020-07-22 21:12] LABS: Alanine Aminotransferase 14 Units/L (7-52); Albumin 4.8 g/dL (3.5-5.7); Albumin/Globulin Ratio 1.4 (1.1-2.2); Alkaline Phosphatase 99 Units/L (34-104); Aspartate Amino Transferase 15 Units/L (13-39); BUN/Creatinine Ratio 13 (6-26); Bilirubin,Direct 0.1 mg/dL (0.0-0.2); Bilirubin,Indirect 0.2 mg/dL (0.0-1.0); Bilirubin,Total 0.3 mg/dL (0.3-1.0); Blood Urea Nitrogen 13 mg/dL (6-20); Carbon Dioxide 27 mEq/L (23-29); Chloride 104 mEq/L (98-107); Globulin 3.4 g/dL (2.4-3.5); Glucose 106 mg/dL (70-105); Lipase 24 Units/L (11-82); Osmolality,Calculated 287 (280-300); Potassium 4.2 mEq/L (3.5-5.1); Sodium 138 mEq/L (136-145); Total Protein 8.2 g/dL (6.4-8.9); eGFR For African Americans > 60 (> 60); eGFR For Non-African Americans > 60 (> 60)
[2020-07-22] MEDS ORDERED: Morphine Sulfate 2 MG/ML SYRINGE IVP ONE (22:30)
[2020-07-22 22:36] LABS: Bilirubin,Urine Negative (Negative); Blood,Urine Negative (Negative); Clarity,Urine Clear (Clear); Color,Urine Light-Yellow (Yellow); Glucose,Urine (UA) Normal (Normal); Ketones,Urine 10 mg/dL (Negative); Leukocyte Esterase,Urine Negative (Negative); Nitrite,Urine Negative (Negative); PH,Urine 6.5 pH Units (5.0-8.0); Protein,Urine Negative (Neg-Trace); Specific Gravity,Urine > 1.030 (1.010-1.025); Urobilinogen,Urine Normal (Normal)
[2020-07-22] MEDS: *HR* HYDROmorphone (PF) 1 MG/ML SYRINGE IVP ONE ×2 (22:44→23:30)
[2020-07-23] MEDS ORDERED: Naloxone 0.4 MG/ML INJ IVP PRN (00:15)
[2020-07-23] MEDS ORDERED: 0.9 % Sodium Chloride 1,000 ML IVC ONE (02:03)
[2020-07-23] MEDS ORDERED: Ondansetron 4 MG/2 ML VIAL IVP PRN (02:06)
[2020-07-23] MEDS: Morphine Sulfate 2 MG/ML SYRINGE IVP PRN ×5 (02:16→21:44)
[2020-07-23 02:26] LABS: Hemoglobin 17.4 g/dL (12.9-16.9); Red Cell Distribution Width 12.7 % (11.5-14.5)
[2020-07-23 02:27] LABS: Mean Corpuscular HGB Conc 34.1 g/dL (31.6-35.5); Mean Corpuscular Hemoglobin 31.5 pg (28.0-33.3); Mean Corpuscular Volume 92.4 fL (83.0-100.0); Mean Platelet Volume 9.2 fL (9.4-12.4); Platelet Count 310 K/mcL (140-400); Red Blood Count 5.52 M/mcL (4.19-5.50); White Blood Count 29.4 K/mcL (4.3-11.1)
[2020-07-23 02:46] LABS: BUN/Creatinine Ratio 12 (6-26); Blood Urea Nitrogen 12 mg/dL (6-20); Calcium 9.6 mg/dL (8.6-10.3); Carbon Dioxide 22 mEq/L (23-29); Chloride 104 mEq/L (98-107); Glucose 141 mg/dL (70-105); Magnesium 1.9 mg/dL (1.6-2.6); Osmolality,Calculated 288 (280-300); Phosphorous 3.2 mg/dL (2.7-4.5); Sodium 138 mEq/L (136-145); eGFR For African Americans > 60 (> 60); eGFR For Non-African Americans > 60 (> 60)
[2020-07-23] MEDS: Piperacillin/Tazobactam 3.375 GM in 0.9 % Sodium Chloride Mini Bag 100 ML IVPB SCH ×2 (08:44→17:11)
[2020-07-23] MEDS ORDERED: Scopolamine Patch 1.5 MG PATCH.TD72 TD ONE (09:14)
[2020-07-23] MEDS ORDERED: Acetaminophen IV 1,000 MG/100 ML INFUS..BTL IVPB ONE (09:15)
[2020-07-23] MEDS ORDERED: Saliva Stimulant 100ml BOTTLE PO PRN (09:57)
[2020-07-23] MEDS ORDERED: Chloraseptic Spray 177 ML BOTTLE MM PRN (09:57)
[2020-07-23] MEDS: 0.9 % Sodium Chloride 1,000 ML IVC SCH (12:20)
[2020-07-23] MEDS: Ondansetron 4 MG/2 ML VIAL IVP PRN ×2 (14:06→17:48)
[2020-07-24] MEDS: Piperacillin/Tazobactam 3.375 GM in 0.9 % Sodium Chloride Mini Bag 100 ML IVPB SCH ×3 (01:12→18:28)
[2020-07-24] MEDS: Ondansetron 4 MG/2 ML VIAL IVP PRN ×4 (01:39→20:29)
[2020-07-24] MEDS: Morphine Sulfate 2 MG/ML SYRINGE IVP PRN ×4 (01:44→20:29)
[2020-07-24] MEDS: 0.9 % Sodium Chloride 1,000 ML IVC SCH ×2 (01:45→18:29)
[2020-07-24 06:45] LABS: Acinetobacter baumannii by PCR Not Detected (Not Detect); Candida albicans by PCR Not Detected (Not Detect); Candida glabrata by PCR Not Detected (Not Detect); Candida krusei by PCR Not Detected (Not Detect); Candida parapsilosis by PCR Not Detected (Not Detect); Candida tropicalis by PCR Not Detected (Not Detect); Enterobacter cloacae Cmplx PCR Not Detected (Not Detect); Enterococcus by PCR Not Detected (Not Detect); Escherichia coli by PCR DETECTED (Not Detect); Klebsiella oxytoca by PCR Not Detected (Not Detect); Klebsiella pneumoniae by PCR Not Detected (Not Detect); Proteus by PCR Not Detected (Not Detect); Pseudomonas aeruginosa by PCR Not Detected (Not Detect); Serratia marcescens by PCR Not Detected (Not Detect); Staphylococcus aureus by PCR Not Detected (Not Detect); Staphylococcus by PCR Not Detected (Not Detect); Streptococcus agalactiae(B)PCR Not Detected (Not Detect); Streptococcus by PCR Not Detected (Not Detect); Streptococcus pneumoniae PCR Not Detected (Not Detect); Streptococcus pyogenes (A) PCR Not Detected (Not Detect); blaKPC Carbapenem-Resist Gene Not Detected (Not Detect)
[2020-07-24 08:30] LABS: Basophils # 0.1 K/mcL (0.0-0.2); Basophils % 0.4 %; Eosinophils # 0.1 K/mcL (0.0-0.6); Eosinophils % 0.7 %; Hematocrit 46.2 % (37.5-50.1); Immature Granulocytes % 0.3 % (0-4); Lymphocytes # 2.1 K/mcL (0.6-4.6); Lymphocytes % 17.8 %; Mean Corpuscular HGB Conc 33.5 g/dL (31.6-35.5); Mean Corpuscular Hemoglobin 31.6 pg (28.0-33.3); Mean Corpuscular Volume 94.1 fL (83.0-100.0); Mean Platelet Volume 9.4 fL (9.4-12.4); Monocytes # 1.3 K/mcL (0.0-1.3); Monocytes % 10.9 %; Neutrophils # 8.3 K/mcL (1.6-8.9); Platelet Count 200 K/mcL (140-400); Red Blood Count 4.91 M/mcL (4.19-5.50); Segmented Neutrophils % 69.9 %
[2020-07-24 08:45] LABS: BUN/Creatinine Ratio 21 (6-26); Blood Urea Nitrogen 19 mg/dL (6-20); Calcium 8.6 mg/dL (8.6-10.3); Carbon Dioxide 23 mEq/L (23-29); Chloride 105 mEq/L (98-107); Glucose 125 mg/dL (70-105); Magnesium 1.8 mg/dL (1.6-2.6); Osmolality,Calculated 284 (280-300); Potassium 3.5 mEq/L (3.5-5.1); Sodium 135 mEq/L (136-145); eGFR For African Americans > 60 (> 60); eGFR For Non-African Americans > 60 (> 60)
[2020-07-24 08:46] LABS: White Blood Count 11.9 K/mcL (4.3-11.1)
[2020-07-24 08:47] LABS: Hemoglobin 15.5 g/dL (12.9-16.9)
[2020-07-24 19:13] LABS: Bilirubin,Urine Negative (Negative); Blood,Urine Negative (Negative); Clarity,Urine Clear (Clear); Color,Urine Light-Yellow (Yellow); Glucose,Urine (UA) Normal (Normal); Ketones,Urine 10 mg/dL (Negative); Leukocyte Esterase,Urine Negative (Negative); Nitrite,Urine Negative (Negative); Protein,Urine Trace mg/dL (Neg-Trace); Urobilinogen,Urine Normal (Normal)
[2020-07-25] MEDS: Piperacillin/Tazobactam 3.375 GM in 0.9 % Sodium Chloride Mini Bag 100 ML IVPB SCH ×3 (00:02→16:10)
[2020-07-25] MEDS: 0.9 % Sodium Chloride 1,000 ML IVC SCH ×2 (00:03→15:38)
[2020-07-25] MEDS: Ondansetron 4 MG/2 ML VIAL IVP PRN ×3 (03:42→21:07)
[2020-07-25] MEDS: Morphine Sulfate 2 MG/ML SYRINGE IVP PRN (03:42)
[2020-07-25 05:51] LABS: Basophils # 0.1 K/mcL (0.0-0.2); Basophils % 0.5 %; Eosinophils # 0.2 K/mcL (0.0-0.6); Eosinophils % 1.6 %; Hematocrit 41.7 % (37.5-50.1); Hemoglobin 14.1 g/dL (12.9-16.9); Immature Granulocytes % 0.4 % (0-4); Lymphocytes # 2.3 K/mcL (0.6-4.6); Lymphocytes % 21.9 %; Mean Corpuscular HGB Conc 33.8 g/dL (31.6-35.5); Mean Corpuscular Hemoglobin 31.5 pg (28.0-33.3); Mean Corpuscular Volume 93.3 fL (83.0-100.0); Mean Platelet Volume 9.4 fL (9.4-12.4); Monocytes % 9.5 %; Neutrophils # 6.8 K/mcL (1.6-8.9); Platelet Count 154 K/mcL (140-400); Red Blood Count 4.47 M/mcL (4.19-5.50); Red Cell Distribution Width 12.4 % (11.5-14.5); Segmented Neutrophils % 66.1 %; White Blood Count 10.3 K/mcL (4.3-11.1)
[2020-07-25 06:07] LABS: BUN/Creatinine Ratio 12 (6-26); Blood Urea Nitrogen 12 mg/dL (6-20); Calcium 8.6 mg/dL (8.6-10.3); Carbon Dioxide 24 mEq/L (23-29); Chloride 106 mEq/L (98-107); Glucose 117 mg/dL (70-105); Magnesium 1.9 mg/dL (1.6-2.6); Osmolality,Calculated 289 (280-300); Potassium 3.3 mEq/L (3.5-5.1); Sodium 139 mEq/L (136-145); eGFR For African Americans > 60 (> 60); eGFR For Non-African Americans > 60 (> 60)
[2020-07-25] MEDS ORDERED: Acetaminophen 325 MG TABLET PO PRN (08:45)
[2020-07-25] MEDS: *HR* HYDROcodone/Acet 5/325 mg TABLET PO PRN (15:29)
[2020-07-26] MEDS: Piperacillin/Tazobactam 3.375 GM in 0.9 % Sodium Chloride Mini Bag 100 ML IVPB SCH ×2 (00:09→08:09)
[2020-07-26] MEDS: *HR* HYDROcodone/Acet 5/325 mg TABLET PO PRN (00:14)
[2020-07-26 06:08] LABS: Hematocrit 38.7 % (37.5-50.1); Hemoglobin 13.1 g/dL (12.9-16.9); Mean Corpuscular HGB Conc 33.9 g/dL (31.6-35.5); Mean Corpuscular Volume 91.7 fL (83.0-100.0); Mean Platelet Volume 9.7 fL (9.4-12.4); Platelet Count 164 K/mcL (140-400); Red Blood Count 4.22 M/mcL (4.19-5.50); Red Cell Distribution Width 12.2 % (11.5-14.5); White Blood Count 7.7 K/mcL (4.3-11.1)
[2020-07-26 06:30] LABS: BUN/Creatinine Ratio 8 (6-26); Blood Urea Nitrogen 7 mg/dL (6-20); Calcium 8.4 mg/dL (8.6-10.3); Carbon Dioxide 24 mEq/L (23-29); Chloride 107 mEq/L (98-107); Glucose 171 mg/dL (70-105); Magnesium 1.7 mg/dL (1.6-2.6); Osmolality,Calculated 288 (280-300); Potassium 3.4 mEq/L (3.5-5.1); Sodium 138 mEq/L (136-145); eGFR For African Americans > 60 (> 60); eGFR For Non-African Americans > 60 (> 60)
[2020-07-26 10:35] VITALS: BP 157/90
== END 2020-07-26 10:47 | disposition home or self-care (01) | DRG 872 ==
LOC: 3ANU 19:16 → EMEROOARM 19:16 → SUATTDRO 07-23 00:11 → 3ANU 07-23 00:42 → SUATTDRO 07-24 15:13
PROVIDERS: ADMIT Family Medicine; ATTEND Internal Medicine

== ENCOUNTER 2021-03-08 05:09 | Observation (INO) ==
[2021-03-08] MEDS ORDERED: Isovue-370 500 ML BOTTLE IVP ONE (06:07)
[2021-03-08] MEDS ORDERED: 0.9 % Sodium Chloride 1,000 ML IVC ONE ×3 (06:08→08:22)
[2021-03-08] MEDS ORDERED: Ondansetron 4 MG/2 ML VIAL IVP ONE (06:08)
[2021-03-08] MEDS ORDERED: *HR* FentaNYL (PF) 100 MCG/2 ML VIAL IVP ONE ×2 (06:09→08:19)
[2021-03-08 06:29] LABS: Hematocrit 51.9 % (37.5-50.1); Hemoglobin 18.6 g/dL (12.9-16.9); Mean Corpuscular HGB Conc 35.8 g/dL (31.6-35.5); Mean Corpuscular Hemoglobin 33.5 pg (28.0-33.3); Mean Corpuscular Volume 93.5 fL (83.0-100.0); Mean Platelet Volume 10.1 fL (9.4-12.4); Platelet Count 340 K/mcL (140-400); Red Blood Count 5.55 M/mcL (4.19-5.50); Red Cell Distribution Width 13.5 % (11.5-14.5)
[2021-03-08 06:36] LABS: Alanine Aminotransferase 15 Units/L (7-52); Albumin 5.2 g/dL (3.5-5.7); Albumin/Globulin Ratio 1.3 (1.1-2.2); Alkaline Phosphatase 126 Units/L (34-104); Aspartate Amino Transferase 17 Units/L (13-39); BUN/Creatinine Ratio 15 (6-26); Bilirubin,Direct 0.1 mg/dL (0.0-0.2); Bilirubin,Indirect 0.4 mg/dL (0.0-1.0); Bilirubin,Total 0.5 mg/dL (0.3-1.0); Blood Urea Nitrogen 20 mg/dL (6-20); Calcium 10.2 mg/dL (8.6-10.3); Carbon Dioxide 21 mEq/L (23-29); Chloride 103 mEq/L (98-107); Glucose 183 mg/dL (70-105); Lipase 19 Units/L (11-82); Osmolality,Calculated 289 (280-300); Sodium 136 mEq/L (136-145); Total Protein 9.2 g/dL (6.4-8.9); eGFR For African Americans > 60 (> 60); eGFR For Non-African Americans 57 (> 60)
[2021-03-08 06:37] LABS: White Blood Count 32.5 K/mcL (4.3-11.1)
[2021-03-08] MEDS ORDERED: Piperacillin/Tazobactam 3.375 GM in 0.9 % Sodium Chloride Mini Bag 100 ML IVPB ONE (06:41)
[2021-03-08] MEDS ORDERED: Vancomycin 2,000 MG/520 ML IV.SOLN IVPB ONE (06:41)
[2021-03-08 06:47] LABS: Lymphocytes # 1.3 K/mcL (0.6-4.6); Monocytes # 1.3 K/mcL (0.0-1.3); Neutrophils # 29.9 K/mcL (1.6-8.9); Platelet Estimate Normal (Normal); Toxic Granulation Present (Not Present)
[2021-03-08] MEDS ORDERED: Naloxone 0.4 MG/ML INJ IVP PRN (08:17)
[2021-03-08] MEDS: Ondansetron 4 MG/2 ML VIAL IVP PRN (10:45)
[2021-03-08] MEDS ORDERED: Prochlorperazine 10 MG/2 ML VIAL IVP ONE (10:58)
[2021-03-08] MEDS: Chloraseptic Spray 177 ML BOTTLE MM PRN ×2 (11:25→15:46)
[2021-03-08] MEDS: Piperacillin/Tazobactam 3.375 GM in 0.9 % Sodium Chloride Mini Bag 100 ML IVPB SCH (15:44)
[2021-03-08] MEDS: 0.9 % Sodium Chloride 1,000 ML IVC SCH (18:54)
[2021-03-08 19:53] LABS: Folate 6.9 ng/mL (3.0-16.0)
[2021-03-08] MEDS ORDERED: Acetaminophen IV 1,000 MG/100 ML BAG IVPB ONE (21:54)
[2021-03-09] MEDS: Piperacillin/Tazobactam 3.375 GM in 0.9 % Sodium Chloride Mini Bag 100 ML IVPB SCH ×3 (00:31→15:14)
[2021-03-09] MEDS: 0.9 % Sodium Chloride 1,000 ML IVC SCH (06:23)
[2021-03-09] MEDS: Ondansetron 4 MG/2 ML VIAL IVP PRN (08:57)
[2021-03-09 10:41] LABS: Hematocrit 43.9 % (37.5-50.1); Mean Corpuscular HGB Conc 35.1 g/dL (31.6-35.5); Mean Corpuscular Hemoglobin 32.9 pg (28.0-33.3); Mean Corpuscular Volume 93.8 fL (83.0-100.0); Mean Platelet Volume 9.7 fL (9.4-12.4); Platelet Count 261 K/mcL (140-400); Red Blood Count 4.68 M/mcL (4.19-5.50); Red Cell Distribution Width 13.2 % (11.5-14.5)
[2021-03-09 10:42] LABS: Hemoglobin 15.4 g/dL (12.9-16.9); White Blood Count 12.2 K/mcL (4.3-11.1)
[2021-03-09 10:54] LABS: BUN/Creatinine Ratio 13 (6-26); Blood Urea Nitrogen 14 mg/dL (6-20); Calcium 8.6 mg/dL (8.6-10.3); Carbon Dioxide 26 mEq/L (23-29); Chloride 109 mEq/L (98-107); Glucose 104 mg/dL (70-105); Magnesium 1.8 mg/dL (1.6-2.6); Osmolality,Calculated 295 (280-300); Potassium 3.6 mEq/L (3.5-5.1); Sodium 142 mEq/L (136-145); eGFR For African Americans > 60 (> 60); eGFR For Non-African Americans > 60 (> 60)
[2021-03-09] MEDS ORDERED: Gadolinium Contrast Agent (WT Based) IV PRN (15:23)
[2021-03-09] MEDS ORDERED: Cyanocobalamin (B-12) 1,000 MCG/ML VIAL IM ONE (15:24)
[2021-03-09] MEDS ORDERED: Prochlorperazine 10 MG/2 ML VIAL IVP PRN (15:33)
[2021-03-10] MEDS: Piperacillin/Tazobactam 3.375 GM in 0.9 % Sodium Chloride Mini Bag 100 ML IVPB SCH ×2 (01:08→07:46)
[2021-03-10 07:04] LABS: Basophils # 0.1 K/mcL (0.0-0.2); Basophils % 0.5 %; Eosinophils # 0.2 K/mcL (0.0-0.6); Eosinophils % 2.3 %; Hematocrit 40.1 % (37.5-50.1); Hemoglobin 13.4 g/dL (12.9-16.9); Immature Granulocytes % 0.4 % (0-4); Lymphocytes # 3.2 K/mcL (0.6-4.6); Lymphocytes % 31.9 %; Mean Corpuscular HGB Conc 33.4 g/dL (31.6-35.5); Mean Corpuscular Hemoglobin 30.7 pg (28.0-33.3); Mean Corpuscular Volume 91.8 fL (83.0-100.0); Mean Platelet Volume 9.4 fL (9.4-12.4); Monocytes # 0.9 K/mcL (0.0-1.3); Monocytes % 8.5 %; Neutrophils # 5.7 K/mcL (1.6-8.9); Platelet Count 191 K/mcL (140-400); Red Blood Count 4.37 M/mcL (4.19-5.50); Red Cell Distribution Width 12.6 % (11.5-14.5); Segmented Neutrophils % 56.4 %
[2021-03-10 07:29] LABS: BUN/Creatinine Ratio 7 (6-26); Blood Urea Nitrogen 7 mg/dL (6-20); Calcium 8.3 mg/dL (8.6-10.3); Carbon Dioxide 24 mEq/L (23-29); Chloride 107 mEq/L (98-107); Glucose 88 mg/dL (70-105); Magnesium 1.7 mg/dL (1.6-2.6); Osmolality,Calculated 283 (280-300); Potassium 3.4 mEq/L (3.5-5.1); Sodium 138 mEq/L (136-145); eGFR For African Americans > 60 (> 60); eGFR For Non-African Americans > 60 (> 60)
[2021-03-10] MEDS ORDERED: Cyanocobalamin (B-12) 1,000 MCG TABLET PO SCH (09:00)
[2021-03-10 15:11] VITALS: BP 158/83
== END 2021-03-10 18:09 | disposition home or self-care (01) ==
LOC: EMEROOARM 05:09 → CDU 05:09 → SUATTDRO 08:28 → CDU 10:13 → 3ANU 18:18
PROVIDERS: ADMIT Internal Medicine; ATTEND Family Medicine

== ENCOUNTER 2021-07-13 22:38 | Inpatient (IN) ==
[2021-07-13] MEDS ORDERED: Ondansetron 4 MG/2 ML VIAL IVP ONE (22:58)
[2021-07-13] MEDS ORDERED: Morphine Sulfate 2 MG/ML SYRINGE IVP ONE (22:58)
[2021-07-13 23:44] LABS: Alanine Aminotransferase 10 Units/L (7-52); Albumin 4.1 g/dL (3.5-5.7); Albumin/Globulin Ratio 1.3 (1.1-2.2); Alkaline Phosphatase 86 Units/L (34-104); Aspartate Amino Transferase 14 Units/L (13-39); BUN/Creatinine Ratio 14 (6-26); Bilirubin,Direct 0.1 mg/dL (0.0-0.2); Bilirubin,Indirect 0.1 mg/dL (0.0-1.0); Bilirubin,Total 0.2 mg/dL (0.3-1.0); Blood Urea Nitrogen 14 mg/dL (6-20); Carbon Dioxide 19 mEq/L (23-29); Chloride 110 mEq/L (98-107); Globulin 3.2 g/dL (2.4-3.5); Glucose 100 mg/dL (70-105); Lipase 31 Units/L (11-82); Osmolality,Calculated 289 (280-300); Potassium 3.9 mEq/L (3.5-5.1); Sodium 139 mEq/L (136-145); Total Protein 7.3 g/dL (6.4-8.9); eGFR For African Americans > 60 (> 60); eGFR For Non-African Americans > 60 (> 60)
[2021-07-14] MEDS ORDERED: Ondansetron 4 MG/2 ML VIAL IVP ONE (00:24)
[2021-07-14 00:50] LABS: Basophils # 0.1 K/mcL (0.0-0.2); Basophils % 0.4 %; Eosinophils # 0.2 K/mcL (0.0-0.6); Eosinophils % 0.9 %; Hematocrit 46.2 % (37.5-50.1); Hemoglobin 15.6 g/dL (12.9-16.9); Immature Granulocytes % 0.4 % (0-4); Lymphocytes % 16.6 %; Mean Corpuscular HGB Conc 33.8 g/dL (31.6-35.5); Mean Corpuscular Hemoglobin 31.4 pg (28.0-33.3); Mean Platelet Volume 9.9 fL (9.4-12.4); Monocytes # 0.9 K/mcL (0.0-1.3); Platelet Count 271 K/mcL (140-400); Red Blood Count 4.97 M/mcL (4.19-5.50); Segmented Neutrophils % 76.7 %; White Blood Count 18.3 K/mcL (4.3-11.1)
[2021-07-14] MEDS: *HR* HYDROmorphone (PF) 1 MG/ML SYRINGE IVP ONE (00:53)
[2021-07-14] MEDS ORDERED: Naloxone 0.4 MG/ML INJ IVP PRN (01:24)
[2021-07-14] MEDS ORDERED: Morphine Sulfate 2 MG/ML SYRINGE IVP PRN (02:06)
[2021-07-14] MEDS: Ringers Solution, Lactated 1,000 ML IVC SCH ×2 (04:09→14:17)
[2021-07-14] MEDS: *HR* HYDROmorphone (PF) 1 MG/ML SYRINGE IVP PRN ×4 (05:32→20:38)
[2021-07-14] MEDS ORDERED: Cefepime HCl 2,000 MG in Water for inj. (sterile) 20 ML IVP SCH (06:00)
[2021-07-14 07:43] LABS: Hematocrit 52.9 % (37.5-50.1); Hemoglobin 19.1 g/dL (12.9-16.9); Mean Corpuscular HGB Conc 36.1 g/dL (31.6-35.5); Mean Corpuscular Hemoglobin 33.9 pg (28.0-33.3); Mean Corpuscular Volume 93.8 fL (83.0-100.0); Mean Platelet Volume 9.5 fL (9.4-12.4); Platelet Count 336 K/mcL (140-400); Red Blood Count 5.64 M/mcL (4.19-5.50); Red Cell Distribution Width 13.2 % (11.5-14.5)
[2021-07-14 07:51] LABS: BUN/Creatinine Ratio 19 (6-26); Blood Urea Nitrogen 20 mg/dL (6-20); Calcium 9.7 mg/dL (8.6-10.3); Carbon Dioxide 17 mEq/L (23-29); Chloride 106 mEq/L (98-107); Glucose 210 mg/dL (70-105); Magnesium 1.6 mg/dL (1.6-2.6); Osmolality,Calculated 291 (280-300); Potassium 4.4 mEq/L (3.5-5.1); Sodium 136 mEq/L (136-145); eGFR For African Americans > 60 (> 60); eGFR For Non-African Americans > 60 (> 60)
[2021-07-14 07:54] LABS: INR 0.9; Prothrombin Time 10.3 Seconds (9.4-12.1)
[2021-07-14 08:00] LABS: White Blood Count 32.8 K/mcL (4.3-11.1)
[2021-07-14 08:20] LABS: Lymphocytes # 1.3 K/mcL (0.6-4.6); Monocytes # 0.7 K/mcL (0.0-1.3); Neutrophils # 30.8 K/mcL (1.6-8.9); Platelet Estimate Normal (Normal)
[2021-07-14] MEDS ORDERED: Pantoprazole 40 MG VIAL IVP SCH (09:00)
[2021-07-14] MEDS: Ondansetron 4 MG/2 ML VIAL IVP PRN (10:32)
[2021-07-14 13:14] LABS: Bacteria,Urine Few per hpf (None-Few); Bilirubin,Urine Negative (Negative); Blood,Urine Moderate (Negative); Clarity,Urine Clear (Clear); Color,Urine Yellow (Yellow); Glucose,Urine (UA) Normal (Normal); Ketones,Urine Trace mg/dL (Negative); Leukocyte Esterase,Urine Negative (Negative); Mucus,Urine Few per lpf (None-Few); Nitrite,Urine Negative (Negative); PH,Urine 5.5 pH Units (5.0-8.0); Protein,Urine 50 mg/dL (Neg-Trace); RBC,Urine 50-100 per hpf (0-3); Specific Gravity,Urine > 1.030 (1.010-1.025); Squamous Epithelial Cell,Urine Few per hpf (None-Few); Urobilinogen,Urine Normal (Normal)
[2021-07-14] MEDS: Acetaminophen IV 1,000 MG/100 ML BAG IVPB SCH ×2 (14:07→19:54)
[2021-07-14] MEDS: *HR* Promethazine 25 MG/ML VIAL IM PRN ×2 (14:29→21:10)
[2021-07-14 16:47] LABS: Adenovirus Not Detected (Not Detect); Bordetella Pertussis Not Detected (Not Detect); Chlamydophila pneumoniae Not Detected (Not Detect); Coronavirus 229E Not Detected (Not Detect); Coronavirus HKU1 Not Detected (Not Detect); Coronavirus NL63 Not Detected (Not Detect); Coronavirus OC43 Not Detected (Not Detect); Human Metapneumovirus Not Detected (Not Detect); Human Rhinovirus/Enterovirus Not Detected (Not Detect); Influenza A Subtype 2009 H1 Not Detected (Not Detect); Influenza B Not Detected (Not Detect); Mycoplasma pneumoniae Not Detected (Not Detect); Parainfluenza Virus 1 Not Detected (Not Detect); Parainfluenza Virus 2 Not Detected (Not Detect); Parainfluenza Virus 3 Not Detected (Not Detect); Parainfluenza Virus 4 Not Detected (Not Detect); Respiratory Syncytial Virus Not Detected (Not Detect); SARS-CoV-2 Not Detected (Not Detect)
[2021-07-14] MEDS: Piperacillin/Tazobactam 3.375 GM in 0.9 % Sodium Chloride Mini Bag 100 ML IVPB SCH ×2 (17:32→19:52)
[2021-07-14] MEDS: Pantoprazole 40 MG VIAL IVP SCH (20:39)
[2021-07-15] MEDS: Piperacillin/Tazobactam 3.375 GM in 0.9 % Sodium Chloride Mini Bag 100 ML IVPB SCH ×3 (00:08→16:17)
[2021-07-15] MEDS: Acetaminophen IV 1,000 MG/100 ML BAG IVPB SCH ×5 (00:09→20:23)
[2021-07-15 01:39] LABS: Hematocrit 43.6 % (37.5-50.1); Hemoglobin 14.9 g/dL (12.9-16.9); Mean Corpuscular HGB Conc 34.2 g/dL (31.6-35.5); Mean Corpuscular Hemoglobin 31.9 pg (28.0-33.3); Mean Corpuscular Volume 93.4 fL (83.0-100.0); Mean Platelet Volume 9.7 fL (9.4-12.4); Platelet Count 263 K/mcL (140-400); Red Blood Count 4.67 M/mcL (4.19-5.50); Red Cell Distribution Width 13.2 % (11.5-14.5); White Blood Count 18.2 K/mcL (4.3-11.1)
[2021-07-15] MEDS: *HR* HYDROmorphone (PF) 1 MG/ML SYRINGE IVP PRN ×4 (01:45→20:00)
[2021-07-15 02:03] LABS: BUN/Creatinine Ratio 21 (6-26); Blood Urea Nitrogen 25 mg/dL (6-20); Calcium 8.8 mg/dL (8.6-10.3); Carbon Dioxide 25 mEq/L (23-29); Chloride 105 mEq/L (98-107); Glucose 99 mg/dL (70-105); Osmolality,Calculated 290 (280-300); Potassium 3.7 mEq/L (3.5-5.1); Sodium 138 mEq/L (136-145); eGFR For African Americans > 60 (> 60); eGFR For Non-African Americans > 60 (> 60)
[2021-07-15 06:58] LABS: C.difficile Toxin A/B Gene PCR Not detected (Not detect); Campylobacter by PCR Not detected (Not detect); Cryptosporidium by PCR Not detected (Not detect); Cyclospora cayetanensis PCR Not detected (Not detect); E. coli O157 by PCR Not detected (Not detect); Entamoeba histolytica PCR Not detected (Not detect); Enteroaggregative E.coli(EAEC) Not detected (Not detect); Enteropathogenic E.coli(EPEC) Not detected (Not detect); Enterotoxigenic E.coli (ETEC) Not detected (Not detect); Plesiomonas shigelloides PCR Not detected (Not detect); Salmonella PCR Not detected (Not detect); Shig/EnteroinvasiveE coli EIEC Not detected (Not detect); Shigalike tox-prod E coli STEC Not detected (Not detect); Vibrio PCR Not detected (Not detect); Vibrio cholerae PCR Not detected (Not detect); Yersinia enterocolitica PCR Not detected (Not detect)
[2021-07-15 06:59] LABS: Adenovirus F 40/41 PCR Not detected (Not detect); Astrovirus PCR Not detected (Not detect); Giardia lamblia PCR Not detected (Not detect); Norovirus GI/GII PCR Not detected (Not detect); Rotavirus A PCR Not detected (Not detect); Sapovirus PCR Not detected (Not detect)
[2021-07-15] MEDS: Pantoprazole 40 MG VIAL IVP SCH ×2 (08:12→20:23)
[2021-07-15] MEDS ORDERED: Chloraseptic Spray 177 ML BOTTLE MM PRN (08:30)
[2021-07-15] MEDS: Ondansetron 4 MG/2 ML VIAL IVP PRN (10:13)
[2021-07-15] MEDS: *HR* HYDROmorphone (PF) 1 MG/ML SYRINGE IVP ONE (19:45)
[2021-07-15] MEDS: *HR* Promethazine 25 MG/ML VIAL IM PRN (20:23)
[2021-07-16] MEDS: *HR* HYDROmorphone (PF) 1 MG/ML SYRINGE IVP PRN ×3 (00:18→09:26)
[2021-07-16] MEDS: Piperacillin/Tazobactam 3.375 GM in 0.9 % Sodium Chloride Mini Bag 100 ML IVPB SCH ×3 (00:19→16:23)
[2021-07-16] MEDS: Ondansetron 4 MG/2 ML VIAL IVP PRN (00:19)
[2021-07-16 03:12] LABS: BUN/Creatinine Ratio 16 (6-26); Blood Urea Nitrogen 17 mg/dL (6-20); Calcium 8.6 mg/dL (8.6-10.3); Carbon Dioxide 25 mEq/L (23-29); Chloride 103 mEq/L (98-107); Glucose 77 mg/dL (70-105); Magnesium 1.7 mg/dL (1.6-2.6); Osmolality,Calculated 284 (280-300); Potassium 3.5 mEq/L (3.5-5.1); Sodium 137 mEq/L (136-145); eGFR For African Americans > 60 (> 60); eGFR For Non-African Americans > 60 (> 60)
[2021-07-16 03:20] LABS: Hematocrit 42.6 % (37.5-50.1); Mean Corpuscular HGB Conc 32.9 g/dL (31.6-35.5); Mean Corpuscular Hemoglobin 30.7 pg (28.0-33.3); Mean Corpuscular Volume 93.4 fL (83.0-100.0); Mean Platelet Volume 9.6 fL (9.4-12.4); Platelet Count 201 K/mcL (140-400); Red Blood Count 4.56 M/mcL (4.19-5.50); Red Cell Distribution Width 12.7 % (11.5-14.5); White Blood Count 13.4 K/mcL (4.3-11.1)
[2021-07-16] MEDS: Acetaminophen IV 1,000 MG/100 ML BAG IVPB SCH ×4 (05:00→18:24)
[2021-07-16] MEDS: Pantoprazole 40 MG VIAL IVP SCH (09:31)
[2021-07-16] MEDS ORDERED: *HR* FentaNYL (PF) 100 MCG/2 ML VIAL ONE ×2 (09:34→11:34)
[2021-07-16] MEDS ORDERED: *HR* Propofol 200 MG/20 ML VIAL IVP ONE (09:34)
[2021-07-16] MEDS ORDERED: *HR* Midazolam HCl 2 MG/2 ML VIAL ONE (09:34)
[2021-07-16] MEDS ORDERED: Lidocaine -MPF 2% 5 ML VIAL ONE (09:38)
[2021-07-16] MEDS ORDERED: EPINEPHrine 1 MG/ML VIAL ONE (09:38)
[2021-07-16] MEDS ORDERED: *HR* Succinylcholine 200 MG/10 ML VIAL IVP ONE (09:38)
[2021-07-16] MEDS ORDERED: *HR* Rocuronium Bromide 50 MG/5 ML VIAL ONE (09:38)
[2021-07-16] MEDS ORDERED: Lidocaine HCL 4 ML Topical Solution (Laryng-O-Jet Kit Sterile Pak) TP ONE (09:38)
[2021-07-16] MEDS ORDERED: *HR* Phenylephrine 10 MG/ML VIAL ONE (11:54)
[2021-07-16] MEDS ORDERED: Ketorolac 30 MG/ML VIAL ONE (12:18)
[2021-07-16] MEDS ORDERED: Sugammadex Sodium 200 MG/2 ML VIAL IV ONE (12:18)
[2021-07-16] MEDS ORDERED: *HR* HYDROMORPHONE 2 MG/ML VIAL ONE (12:24)
[2021-07-16] MEDS ORDERED: *HR* FentaNYL (PF) 100 MCG/2 ML VIAL IVP PRN (13:05)
[2021-07-16] MEDS: *HR* HYDROmorphone PF 0.5 MG/0.5 ML SYRINGE IVP PRN ×3 (13:10→13:26)
[2021-07-16] MEDS ORDERED: Naloxone 0.4 MG/ML INJ IVP PRN (14:17)
[2021-07-16] MEDS ORDERED: Chloraseptic Spray 177 ML BOTTLE MM PRN (14:17)
[2021-07-16] MEDS ORDERED: Ringers Solution, Lactated 1,000 ML IVC SCH ×2 (14:30)
[2021-07-16] MEDS: 0.9 % Sodium Chloride 1,000 ML IVC SCH ×2 (14:50→21:40)
[2021-07-16] MEDS: Morphine PCA 30 MG/ 30 ML 30 ML PCA.VIAL IVC PRN ×2 (16:06→23:25)
[2021-07-16] MEDS: *HR* Heparin 5,000 UNIT/ML VIAL SQ SCH (17:33)
[2021-07-16] MEDS: Ketorolac 15 MG/ML VIAL IVP SCH (17:34)
[2021-07-16] MEDS ORDERED: Pantoprazole 40 MG VIAL IVP SCH (21:00)
[2021-07-17] MEDS: Ketorolac 15 MG/ML VIAL IVP SCH ×4 (00:24→17:30)
[2021-07-17] MEDS: Acetaminophen IV 1,000 MG/100 ML BAG IVPB SCH ×4 (00:27→17:30)
[2021-07-17] MEDS: Piperacillin/Tazobactam 3.375 GM in 0.9 % Sodium Chloride Mini Bag 100 ML IVPB SCH ×3 (01:05→15:13)
[2021-07-17] MEDS: *HR* Heparin 5,000 UNIT/ML VIAL SQ SCH ×2 (05:31→17:30)
[2021-07-17] MEDS: 0.9 % Sodium Chloride 1,000 ML IVC SCH ×2 (05:49→13:01)
[2021-07-17 07:49] LABS: Hematocrit 36.8 % (37.5-50.1); Mean Corpuscular HGB Conc 35.3 g/dL (31.6-35.5); Mean Corpuscular Hemoglobin 32.7 pg (28.0-33.3); Mean Corpuscular Volume 92.7 fL (83.0-100.0); Mean Platelet Volume 9.4 fL (9.4-12.4); Platelet Count 193 K/mcL (140-400); Red Blood Count 3.97 M/mcL (4.19-5.50); Red Cell Distribution Width 12.2 % (11.5-14.5); White Blood Count 14.1 K/mcL (4.3-11.1)
[2021-07-17 08:15] LABS: BUN/Creatinine Ratio 16 (6-26); Blood Urea Nitrogen 15 mg/dL (6-20); Calcium 8.6 mg/dL (8.6-10.3); Carbon Dioxide 23 mEq/L (23-29); Chloride 103 mEq/L (98-107); Glucose 96 mg/dL (70-105); Magnesium 1.7 mg/dL (1.6-2.6); Osmolality,Calculated 283 (280-300); Potassium 3.7 mEq/L (3.5-5.1); Sodium 136 mEq/L (136-145); eGFR For African Americans > 60 (> 60); eGFR For Non-African Americans > 60 (> 60)
[2021-07-17] MEDS: Pantoprazole 40 MG VIAL IVP SCH (09:24)
[2021-07-17] MEDS: *HR* OxyCODONE/APAP 10/325 TABLET PO PRN ×3 (09:25→21:33)
[2021-07-17] MEDS: Ondansetron 4 MG/2 ML VIAL IVP PRN ×2 (11:36→21:33)
[2021-07-17 14:45] LABS: Saccharomyces cerevisiae IgA 0.9 Units (0.0-24.9)
[2021-07-18] MEDS: Ketorolac 15 MG/ML VIAL IVP SCH ×4 (00:31→17:59)
[2021-07-18] MEDS: Acetaminophen IV 1,000 MG/100 ML BAG IVPB SCH ×4 (00:40→18:00)
[2021-07-18] MEDS: Piperacillin/Tazobactam 3.375 GM in 0.9 % Sodium Chloride Mini Bag 100 ML IVPB SCH ×3 (01:50→16:18)
[2021-07-18 02:45] LABS: Hematocrit 34.3 % (37.5-50.1); Hemoglobin 12.3 g/dL (12.9-16.9); Mean Corpuscular HGB Conc 35.9 g/dL (31.6-35.5); Mean Corpuscular Hemoglobin 33.3 pg (28.0-33.3); Mean Platelet Volume 9.1 fL (9.4-12.4); Platelet Count 178 K/mcL (140-400); Red Blood Count 3.69 M/mcL (4.19-5.50); White Blood Count 11.3 K/mcL (4.3-11.1)
[2021-07-18 03:08] LABS: BUN/Creatinine Ratio 17 (6-26); Blood Urea Nitrogen 13 mg/dL (6-20); Calcium 8.3 mg/dL (8.6-10.3); Carbon Dioxide 23 mEq/L (23-29); Chloride 103 mEq/L (98-107); Glucose 86 mg/dL (70-105); Osmolality,Calculated 283 (280-300); Potassium 3.1 mEq/L (3.5-5.1); Sodium 137 mEq/L (136-145); eGFR For African Americans > 60 (> 60); eGFR For Non-African Americans > 60 (> 60)
[2021-07-18] MEDS: 0.9 % Sodium Chloride 1,000 ML IVC SCH (03:24)
[2021-07-18] MEDS: *HR* OxyCODONE/APAP 10/325 TABLET PO PRN ×3 (04:44→22:44)
[2021-07-18] MEDS: *HR* Heparin 5,000 UNIT/ML VIAL SQ SCH ×2 (05:47→18:03)
[2021-07-18] MEDS: Pantoprazole 40 MG VIAL IVP SCH (09:42)
[2021-07-18] MEDS: Ondansetron 4 MG/2 ML VIAL IVP PRN (17:59)
[2021-07-19] MEDS: Ketorolac 15 MG/ML VIAL IVP SCH ×3 (00:31→13:23)
[2021-07-19] MEDS: Ondansetron 4 MG/2 ML VIAL IVP PRN (00:36)
[2021-07-19] MEDS: Acetaminophen IV 1,000 MG/100 ML BAG IVPB SCH ×3 (00:40→13:48)
[2021-07-19] MEDS: Piperacillin/Tazobactam 3.375 GM in 0.9 % Sodium Chloride Mini Bag 100 ML IVPB SCH ×2 (01:25→10:15)
[2021-07-19] MEDS: *HR* Heparin 5,000 UNIT/ML VIAL SQ SCH (06:20)
[2021-07-19 08:01] LABS: Basophils % 0.2 %; Eosinophils # 0.1 K/mcL (0.0-0.6); Eosinophils % 0.8 %; Hematocrit 34.9 % (37.5-50.1); Hemoglobin 12.3 g/dL (12.9-16.9); Immature Granulocytes % 0.5 % (0-4); Lymphocytes # 1.2 K/mcL (0.6-4.6); Lymphocytes % 11.1 %; Mean Corpuscular HGB Conc 35.2 g/dL (31.6-35.5); Mean Corpuscular Hemoglobin 31.5 pg (28.0-33.3); Mean Corpuscular Volume 89.3 fL (83.0-100.0); Mean Platelet Volume 9.7 fL (9.4-12.4); Monocytes # 0.7 K/mcL (0.0-1.3); Monocytes % 6.7 %; Platelet Count 195 K/mcL (140-400); Red Blood Count 3.91 M/mcL (4.19-5.50); Red Cell Distribution Width 12.1 % (11.5-14.5); Segmented Neutrophils % 80.7 %; White Blood Count 11.1 K/mcL (4.3-11.1)
[2021-07-19 08:18] LABS: BUN/Creatinine Ratio 16 (6-26); Blood Urea Nitrogen 12 mg/dL (6-20); Calcium 8.6 mg/dL (8.6-10.3); Carbon Dioxide 24 mEq/L (23-29); Chloride 103 mEq/L (98-107); Glucose 91 mg/dL (70-105); Osmolality,Calculated 281 (280-300); Potassium 3.3 mEq/L (3.5-5.1); Sodium 136 mEq/L (136-145); eGFR For African Americans > 60 (> 60); eGFR For Non-African Americans > 60 (> 60)
[2021-07-19] MEDS: Pantoprazole 40 MG VIAL IVP SCH (10:15)
[2021-07-19] MEDS: *HR* OxyCODONE/APAP 10/325 TABLET PO PRN (10:23)
[2021-07-19 10:40] VITALS: BP 164/94; PULSE 90; TEMP 97.6; O2SAT 94
== END 2021-07-19 14:36 | disposition home or self-care (01) | DRG 854 ==
LOC: 3ANU 22:38 → EMEROOARM 22:38 → SUATTDRO 07-14 01:55 → 3ANU 07-14 03:38 → SUATTDRO 07-14 20:02
PROVIDERS: ADMIT Student in an Organized Health Care Education/Training Program; ATTEND Internal Medicine

== ENCOUNTER 2022-03-11 01:53 | Inpatient (IN) ==
[2022-03-11] MEDS ORDERED: Isovue-370 500 ML BOTTLE IVP ONE (02:04)
[2022-03-11] MEDS ORDERED: Morphine Sulfate 2 MG/ML SYRINGE IVP ONE (02:10)
[2022-03-11] MEDS ORDERED: Ondansetron 4 MG/2 ML VIAL IVP ONE (02:10)
[2022-03-11 02:23] LABS: Basophils # 0.1 K/mcL (0.0-0.2); Basophils % 0.5 %; Eosinophils # 0.1 K/mcL (0.0-0.6); Eosinophils % 0.5 %; Hematocrit 46.2 % (37.5-50.1); Hemoglobin 16.7 g/dL (12.9-16.9); Immature Granulocytes % 0.5 % (0-4); Lymphocytes # 4.5 K/mcL (0.6-4.6); Mean Corpuscular HGB Conc 36.1 g/dL (31.6-35.5); Mean Corpuscular Hemoglobin 34.4 pg (28.0-33.3); Mean Corpuscular Volume 95.3 fL (83.0-100.0); Mean Platelet Volume 9.4 fL (9.4-12.4); Monocytes # 1.2 K/mcL (0.0-1.3); Monocytes % 6.9 %; Neutrophils # 11.4 K/mcL (1.6-8.9); Platelet Count 264 K/mcL (140-400); Red Blood Count 4.85 M/mcL (4.19-5.50); Red Cell Distribution Width 13.3 % (11.5-14.5); Segmented Neutrophils % 65.6 %; White Blood Count 17.4 K/mcL (4.3-11.1)
[2022-03-11 02:43] LABS: Alanine Aminotransferase 16 Units/L (7-52); Albumin 4.7 g/dL (3.5-5.7); Albumin/Globulin Ratio 1.5 (1.1-2.2); Alkaline Phosphatase 71 Units/L (34-104); Amylase 49 Units/L (29-103); Aspartate Amino Transferase 17 Units/L (13-39); BUN/Creatinine Ratio 14 (6-26); Bilirubin,Total 0.3 mg/dL (0.3-1.0); Blood Urea Nitrogen 19 mg/dL (6-20); Calcium 9.4 mg/dL (8.6-10.3); Carbon Dioxide 29 mEq/L (23-29); Chloride 104 mEq/L (98-107); Globulin 3.2 g/dL (2.4-3.5); Glucose 111 mg/dL (70-105); Lipase 38 Units/L (11-82); Osmolality,Calculated 289 (280-300); Potassium 4.1 mEq/L (3.5-5.1); Sodium 138 mEq/L (136-145); Total Protein 7.9 g/dL (6.4-8.9); eGFR For African Americans > 60 (> 60); eGFR For Non-African Americans 55 (> 60)
[2022-03-11 03:06] LABS: Platelet Estimate Normal (Normal); Reactive Lymphocytes Present (Not Present)
[2022-03-11 03:22] LABS: Bilirubin,Urine Negative (Negative); Blood,Urine Negative (Negative); Clarity,Urine Clear (Clear); Color,Urine Light-Yellow (Yellow); Glucose,Urine (UA) Normal (Normal); Ketones,Urine Negative (Negative); Leukocyte Esterase,Urine Negative (Negative); Nitrite,Urine Negative (Negative); Protein,Urine Negative (Neg-Trace); Urobilinogen,Urine Normal (Normal)
[2022-03-11] MEDS ORDERED: methylPREDNISolone 125 MG/2 ML VIAL IVP ONE (03:42)
[2022-03-11] MEDS ORDERED: *HR* FentaNYL (PF) 100 MCG/2 ML VIAL IVP ONE (03:43)
[2022-03-11] MEDS ORDERED: 0.9 % Sodium Chloride 1,000 ML IV ONE (03:58)
[2022-03-11] MEDS ORDERED: Piperacillin/Tazobactam 3.375 GM in 0.9 % Sodium Chloride Mini Bag 100 ML IVP ONE (03:59)
[2022-03-11] MEDS ORDERED: Prochlorperazine 10 MG/2 ML VIAL IVP ONE (04:43)
[2022-03-11] MEDS ORDERED: Naloxone 0.4 MG/ML INJ IVP PRN (04:57)
[2022-03-11] MEDS: *HR* HYDROmorphone (PF) 1 MG/ML SYRINGE IVP PRN ×3 (05:01→18:28)
[2022-03-11] MEDS ORDERED: *HR* LORazepam 2 MG/ML VIAL IVP ONE (05:11)
[2022-03-11] MEDS: 0.9 % Sodium Chloride 1,000 ML IVC SCH ×3 (05:26→21:51)
[2022-03-11] MEDS ORDERED: Dextrose 4 GM Chewable Tablets PO PRN ×2 (07:38)
[2022-03-11] MEDS ORDERED: D5% in Water 1,000 ML IVC PRN (07:38)
[2022-03-11] MEDS ORDERED: *HR* Dextrose 50 % in Water (Syg) 50 ML SYRINGE IVP PRN (07:38)
[2022-03-11] MEDS: Acetaminophen IV 1,000 MG/100 ML BAG IVPB SCH ×3 (08:38→17:20)
[2022-03-11 09:31] LABS: C-Reactive Protein 6 mg/L (Less than 10)
[2022-03-11] MEDS ORDERED: *HR* OxyCODONE Oral Soln 5 MG/5 ML UD.LIQ PO PRN (11:39)
[2022-03-11] MEDS: Piperacillin/Tazobactam 3.375 GM in 0.9 % Sodium Chloride Mini Bag 100 ML IVPB SCH ×2 (12:33→21:51)
[2022-03-11] MEDS: Insulin LISPRO 300 UNITS/3 ML VIAL SUBQ SCH ×2 (12:34→17:20)
[2022-03-11] MEDS: MethylPREDNISolone 40 MG/ML VIAL IVP SCH (16:33)
[2022-03-11] MEDS: Pantoprazole 40 MG VIAL IVP SCH (17:19)
[2022-03-12] MEDS ORDERED: Chloraseptic Spray 177 ML BOTTLE MM PRN (00:35)
[2022-03-12] MEDS: Acetaminophen IV 1,000 MG/100 ML BAG IVPB SCH ×5 (00:38→23:13)
[2022-03-12] MEDS: MethylPREDNISolone 40 MG/ML VIAL IVP SCH ×4 (00:39→23:12)
[2022-03-12] MEDS: Insulin LISPRO 300 UNITS/3 ML VIAL SUBQ SCH ×4 (00:40→17:58)
[2022-03-12] MEDS: *HR* HYDROmorphone (PF) 1 MG/ML SYRINGE IVP PRN (01:22)
[2022-03-12] MEDS: Piperacillin/Tazobactam 3.375 GM in 0.9 % Sodium Chloride Mini Bag 100 ML IVPB SCH ×3 (03:38→19:47)
[2022-03-12] MEDS: 0.9 % Sodium Chloride 1,000 ML IVC SCH (04:29)
[2022-03-12 06:17] LABS: BUN/Creatinine Ratio 14 (6-26); Blood Urea Nitrogen 14 mg/dL (6-20); Carbon Dioxide 25 mEq/L (23-29); Chloride 102 mEq/L (98-107); Chol/HDL Ratio 3.8 (0-4.9); Cholesterol 192 mg/dL (< 200); Glucose 141 mg/dL (70-105); HDL Cholesterol 51 mg/dL (40-59); LDL Cholesterol,Calculated 99 mg/dL (< 100); Magnesium 1.8 mg/dL (1.6-2.6); Osmolality,Calculated 285 (280-300); Potassium 3.8 mEq/L (3.5-5.1); Sodium 136 mEq/L (136-145); Triglycerides 210 mg/dL (< 150); eGFR For African Americans > 60 (> 60); eGFR For Non-African Americans > 60 (> 60)
[2022-03-12 06:18] LABS: % Iron Saturation 15 % (20-55); Iron 64 mcg/dL (65-175); Transferrin 302 mg/dL (203-362)
[2022-03-12 06:27] LABS: Ferritin 87 ng/mL (20-250)
[2022-03-12 06:51] LABS: Hematocrit 46.7 % (37.5-50.1); Hemoglobin 15.7 g/dL (12.9-16.9); Mean Corpuscular HGB Conc 33.6 g/dL (31.6-35.5); Mean Corpuscular Hemoglobin 31.8 pg (28.0-33.3); Mean Corpuscular Volume 94.5 fL (83.0-100.0); Mean Platelet Volume 10.6 fL (9.4-12.4); Platelet Count 182 K/mcL (140-400); Red Blood Count 4.94 M/mcL (4.19-5.50); Red Cell Distribution Width 13.2 % (11.5-14.5); White Blood Count 26.2 K/mcL (4.3-11.1)
[2022-03-12] MEDS ORDERED: 0.9 % Sodium Chloride 1,000 ML IVC SCH (07:30)
[2022-03-12] MEDS: *HR* Enoxaparin 40 MG/0.4 ML SYRINGE SQ SCH (07:58)
[2022-03-12] MEDS: Pantoprazole 40 MG VIAL IVP SCH ×2 (07:58→17:22)
[2022-03-12 09:13] LABS: Estimated Average Glucose 123 mg/dl; Hemoglobin A1C 5.9 %
[2022-03-12 10:19] LABS: Folate 13.1 ng/mL (3.0-16.0)
[2022-03-12 23:34] VITALS: O2SAT 94
[2022-03-13] MEDS: Insulin LISPRO 300 UNITS/3 ML VIAL SUBQ SCH (01:26)
[2022-03-13 02:51] LABS: Hematocrit 39.6 % (37.5-50.1); Hemoglobin 14.3 g/dL (12.9-16.9); Mean Corpuscular HGB Conc 36.1 g/dL (31.6-35.5); Mean Corpuscular Hemoglobin 34.6 pg (28.0-33.3); Mean Corpuscular Volume 95.9 fL (83.0-100.0); Mean Platelet Volume 9.7 fL (9.4-12.4); Platelet Count 208 K/mcL (140-400); Red Blood Count 4.13 M/mcL (4.19-5.50); Red Cell Distribution Width 13.1 % (11.5-14.5)
[2022-03-13 03:17] LABS: BUN/Creatinine Ratio 17 (6-26); Blood Urea Nitrogen 16 mg/dL (6-20); Calcium 8.8 mg/dL (8.6-10.3); Carbon Dioxide 24 mEq/L (23-29); Chloride 106 mEq/L (98-107); Glucose 115 mg/dL (70-105); Magnesium 1.8 mg/dL (1.6-2.6); Osmolality,Calculated 288 (280-300); Phosphorous 1.9 mg/dL (2.7-4.5); Potassium 4.2 mEq/L (3.5-5.1); Sodium 138 mEq/L (136-145); eGFR For African Americans > 60 (> 60); eGFR For Non-African Americans > 60 (> 60)
[2022-03-13] MEDS: Pantoprazole 40 MG VIAL IVP SCH (04:06)
[2022-03-13] MEDS: Piperacillin/Tazobactam 3.375 GM in 0.9 % Sodium Chloride Mini Bag 100 ML IVPB SCH (04:07)
[2022-03-13] MEDS: *HR* Enoxaparin 40 MG/0.4 ML SYRINGE SQ SCH (04:07)
[2022-03-13] MEDS: Acetaminophen IV 1,000 MG/100 ML BAG IVPB SCH (06:16)
[2022-03-13] MEDS: MethylPREDNISolone 40 MG/ML VIAL IVP SCH (08:58)
[2022-03-13 12:21] VITALS: BP 169/96; PULSE 69; TEMP 97.4
== END 2022-03-13 13:48 | disposition home or self-care (01) | DRG 872 ==
LOC: EMEROOARM 01:53 → 3ANU 01:53 → SUATTDRO 04:10 → 3ANU 04:40
PROVIDERS: ADMIT Student in an Organized Health Care Education/Training Program; ATTEND Internal Medicine